=== PATIENT | male | born 1945 | race Caucasian/White ===

== ENCOUNTER 2018-02-15 20:08 | Inpatient (IN) | payer MEDICARE, OTHER ==
[2018-02-15] MEDS: SOD CHLORIDE 0.9% 1,000 ML IV (20:26)
[2018-02-15 20:42] LABS: WHITE BLOOD COUNT 15.5 10^3/ul (4.8-10.8)
[2018-02-15 20:42] LABS: ABNORMAL IP MESSAGE 1; HEMATOCRIT 13.2 % (42.0-52.0); MEAN CORPUSCULAR HEMOGLOBIN 33.3 pg (29.0-33.0); MEAN CORPUSCULAR HGB CONC 30.3 g/dl (32.0-37.0); PLATELET COUNT 206 10^3/UL (140-415); POSITIVE DIFF @See below; RED CELL DISTRIBUTION WIDTH 19.3 % (11.5-14.5)
[2018-02-15 21:01] LABS: ADD MAN DIFF? YES
[2018-02-15 21:02] LABS: ALANINE AMINOTRANSFERASE 13 IU/L (13-69); ALBUMIN 3.2 g/dl (3.3-4.9); ALKALINE PHOSPHATASE 116 IU/L (42-121); ANION GAP 27 (8-16); ASPARTATE AMINO TRANSFERASE < 8 IU/L (15-46); CALCIUM 9.3 mg/dl (8.4-10.2); CHLORIDE 124 mmol/L (97-110); CREATININE 8.82 mg/dl (0.61-1.24); GLUCOSE 158 mg/dl (70-220); SODIUM 150 mmol/L (135-144); TOTAL PROTEIN 6.4 g/dl (6.1-8.1)
[2018-02-15 21:09] LABS: POTASSIUM 7.8 mmol/L (3.5-5.1)
[2018-02-15 21:10] LABS: BLOOD UREA NITROGEN 186 mg/dl (7-20); CARBON DIOXIDE 7 mmol/L (21-31)
[2018-02-15 21:13] LABS: TROPONIN-I 0.019 ng/ml (0.000-0.120)
[2018-02-15] MEDS ORDERED: DEXTROSE 50% 50 ML SYRINGE IV (21:30)
[2018-02-15 21:43] LABS: BAND NEUTROPHILS #M 0.1 10^3/ul (0.0-0.6); BAND NEUTROPHILS % (M) 1 % (0-4); ERYTHROBLAST% (NRBC) (M) 1 % (0-0); LYMPHOCYTES # 0.9 10^3/ul (0.8-2.9); LYMPHOCYTES #M 0.9 10^3/ul (0.8-2.9); LYMPHOCYTES % (M) 6 % (15-51); MONOCYTE # 0.9 10^3/ul (0.3-0.9); MONOCYTE #M 0.9 10^3/ul (0.3-0.9); MONOCYTES % (M) 6 % (0-11); MYELOCYTES #M 0.1 10^3/ul (0.0-0.0); MYELOCYTES % (M) 1 % (0-0); SEG NEUT #M 13.3 10^3/ul (1.7-7.5); SEGMENTED NEUTROPHILS (M) % 86 % (39-77)
[2018-02-15 21:45] LABS: BURR CELLS 2+
[2018-02-15] MEDS: DEXTROSE 50% 50 ML SYRINGE IV ×2 (21:51→22:10)
[2018-02-15] MEDS: NA BICARBONATE 8.4% 50 ML SYG IV (21:54)
[2018-02-15] MEDS: INSULIN REGULAR, HUMAN 100 UNIT/1 ML 3ML VIAL IVP (21:54)
[2018-02-15] MEDS: CA CHLORIDE 10% 10 ML SYRINGE IV (21:54)
[2018-02-15 21:56] LABS: IRON 75 ug/dl (35-150)
[2018-02-15 22:06] LABS: % IRON SATURATION 31 % SAT (22-52); TOTAL IRON BINDING CAPACITY 243 ug/dl (241-421)
[2018-02-15] MEDS: NA POLYST SULFON 15 GM/60 ML BTL PO (22:10)
[2018-02-15] MEDS ORDERED: ALBUTEROL/IPRATROPIUM (NEB) 3 ML AMP NEB (23:00)
[2018-02-15] MEDS ORDERED: DOCUSATE SODIUM 100 MG CAP PO (23:00)
[2018-02-15] MEDS ORDERED: BISACODYL (EC) 5 MG TAB PO (23:00)
[2018-02-15] MEDS ORDERED: ONDANSETRON 4 MG INJ IV (23:00)
[2018-02-16 00:39] LABS: LACTIC ACID 3.1 mmol/L (0.5-2.0)
[2018-02-16 02:05] LABS: AADO2 Arterial 20.1 mmHg (7.0-24.0); Allen Test ACCEPTAB; Arterial Base Excess -17.3 mmol/L (-3.0-3); Arterial Blood Gas Oxygen Sat 96.9 mmHG (95.0-100.0); Arterial COHb 0.3 % (0.0-3.0); Arterial Fraction of Oxyhgb 95.8 % (93.0-99.0); Arterial HCO3 8.4 mmol/L (22.0-26.0); Arterial MetHb 0.8 % (0.0-1.5); Arterial Total Hemglobin 5.6 g/dl (12.0-18.0); Arterial pCO2 19.8 mmhg (35-45); MODE ROOM AIR; Site Left Radial
[2018-02-16 02:45] LABS: ADD MAN DIFF? NO
[2018-02-16 02:52] LABS: WHITE BLOOD COUNT 13.9 10^3/ul (4.8-10.8)
[2018-02-16 02:52] LABS: ABNORMAL IP MESSAGE 1; BASOPHILS % 0.1 % (0.0-2.0); EOSINOPHILS % 0.1 % (0.0-7.0); HEMATOCRIT 17.3 % (42.0-52.0); LYMPHOCYTES # 1.2 10^3/ul (0.8-2.9); LYMPHOCYTES % 8.4 % (15.0-51.0); MEAN CORPUSCULAR HEMOGLOBIN 32.9 pg (29.0-33.0); MEAN CORPUSCULAR HGB CONC 30.6 g/dl (32.0-37.0); MEAN CORPUSCULAR VOLUME 107.5 fl (82.0-101.0); MEAN PLATELET VOLUME 12.8 fl (7.4-10.4); MONOCYTE # 1.7 10^3/ul (0.3-0.9); MONOCYTES % 12.5 % (0.0-11.0); NEUTROPHIL # 10.5 10^3/ul (1.6-7.5); NEUTROPHILS % 75.8 % (39.0-77.0); NUCLEATED RED BLOOD CELLS # 0.5 10^3/ul (0.0-0.0); NUCLEATED RED BLOOD CELLS% 3.6 /100WBC (0.0-0.0); PLATELET COUNT 152 10^3/UL (140-415); POSITIVE DIFF @See below; RED BLOOD COUNT 1.61 10^6/ul (4.70-6.10); RED CELL DISTRIBUTION WIDTH 17.6 % (11.5-14.5)
[2018-02-16 03:20] LABS: HEMOGLOBIN 5.3 g/dl (14.0-18.0)
[2018-02-16 03:27] LABS: ALANINE AMINOTRANSFERASE 12 IU/L (13-69); ALBUMIN 3.1 g/dl (3.3-4.9); ALBUMIN/GLOBULIN RATIO 1.06; ALKALINE PHOSPHATASE 107 IU/L (42-121); ANION GAP 24 (8-16); ASPARTATE AMINO TRANSFERASE 9 IU/L (15-46); CALCIUM 9.9 mg/dl (8.4-10.2); CHLORIDE 128 mmol/L (97-110); CREATININE 8.07 mg/dl (0.61-1.24); GLUCOSE 121 mg/dl (70-220); POTASSIUM 5.8 mmol/L (3.5-5.1); SODIUM 155 mmol/L (135-144)
[2018-02-16] MEDS: SOD CHLORIDE 0.9% 500 ML IV ×2 (03:30→04:50)
[2018-02-16] MEDS ORDERED: PIPER-TAZO 3.375 GM IV (PMX) 100 ML IVPB (03:30)
[2018-02-16 03:33] LABS: CARBON DIOXIDE 9 mmol/L (21-31)
[2018-02-16 03:37] LABS: IMMEDIATE SPIN CROSSMATCH 1 6
[2018-02-16 03:50] LABS: BLOOD UREA NITROGEN 169 mg/dl (7-20)
[2018-02-16 04:42] LABS: FOLATE > 20.0 ng/ml (2.8-20.0)
[2018-02-16] MEDS: SODIUM BICARBONATE (IV ADD) 150 MEQ in DEXTROSE 5% 850 ML IV ×2 (04:53→23:44)
[2018-02-16] MEDS: SOD CHLORIDE 0.9% 1,000 ML IV ×2 (04:54→23:30)
[2018-02-16] MEDS: AZTREONAM 2 GM in SOD CHLORIDE 0.9% 100 ML IVPB (04:54)
[2018-02-16 05:22] LABS: LACTIC ACID 1.6 mmol/L (0.5-2.0)
[2018-02-16] MEDS: PANTOPRAZOLE (EC) 40 MG TAB PO (05:22)
[2018-02-16] MEDS: hydrALAzine 20 MG INJ IV ×2 (05:24→16:20)
[2018-02-16 05:35] LABS: ALANINE AMINOTRANSFERASE 15 IU/L (13-69); ALBUMIN 2.6 g/dl (3.3-4.9); ALBUMIN/GLOBULIN RATIO 0.96; ALKALINE PHOSPHATASE 87 IU/L (42-121); ANION GAP 20 (8-16); ASPARTATE AMINO TRANSFERASE < 8 IU/L (15-46); CALCIUM 9.1 mg/dl (8.4-10.2); CARBON DIOXIDE 12 mmol/L (21-31); CHLORIDE 129 mmol/L (97-110); CREATININE 7.57 mg/dl (0.61-1.24); GLUCOSE 134 mg/dl (70-220); POTASSIUM 5.6 mmol/L (3.5-5.1); SODIUM 155 mmol/L (135-144); TOTAL PROTEIN 5.3 g/dl (6.1-8.1)
[2018-02-16 05:43] LABS: BLOOD UREA NITROGEN 168 mg/dl (7-20)
[2018-02-16 05:59] LABS: OSMOLALITY 372 mOsm/kg (280-295)
[2018-02-16 07:23] LABS: ALANINE AMINOTRANSFERASE 16 IU/L (13-69); ALBUMIN 2.7 g/dl (3.3-4.9); ALKALINE PHOSPHATASE 91 IU/L (42-121); ANION GAP 21 (8-16); ASPARTATE AMINO TRANSFERASE 11 IU/L (15-46); CALCIUM 8.8 mg/dl (8.4-10.2); CHLORIDE 127 mmol/L (97-110); CREATININE 6.92 mg/dl (0.61-1.24); GLUCOSE 129 mg/dl (70-220); POTASSIUM 5.4 mmol/L (3.5-5.1); SODIUM 153 mmol/L (135-144); TOTAL PROTEIN 5.7 g/dl (6.1-8.1)
[2018-02-16 07:38] LABS: BLOOD UREA NITROGEN 161 mg/dl (7-20)
[2018-02-16 07:39] LABS: CARBON DIOXIDE 10 mmol/L (21-31)
[2018-02-16 09:25] LABS: HEMATOCRIT 29.4 % (42.0-52.0); HEMOGLOBIN 9.4 g/dl (14.0-18.0)
[2018-02-16 09:49] LABS: ALBUMIN/GLOBULIN RATIO 0.93
[2018-02-16 09:58] LABS: ALANINE AMINOTRANSFERASE 19 IU/L (13-69); ALBUMIN 2.7 g/dl (3.3-4.9); ALKALINE PHOSPHATASE 88 IU/L (42-121); ANION GAP 21 (8-16); ASPARTATE AMINO TRANSFERASE 16 IU/L (15-46); BILIRUBIN,INDIRECT 0.1 mg/dl (0-1.1); BILIRUBIN,TOTAL 0.1 mg/dl (0.2-1.3); CALCIUM 8.7 mg/dl (8.4-10.2); CHLORIDE 127 mmol/L (97-110); GLUCOSE 129 mg/dl (70-220); POTASSIUM 5.6 mmol/L (3.5-5.1); SODIUM 152 mmol/L (135-144); TOTAL PROTEIN 5.6 g/dl (6.1-8.1)
[2018-02-16 10:02] LABS: CARBON DIOXIDE 10 mmol/L (21-31)
[2018-02-16 10:12] LABS: BLOOD UREA NITROGEN 162 mg/dl (7-20)
[2018-02-16] MEDS: AZTREONAM 0.5 GM in SOD CHLORIDE 0.9% 50 ML IV ×2 (13:15→21:22)
[2018-02-16 14:47] LABS: RETICULOCYTE COUNT % 4.9 % (0.5-1.5)
[2018-02-16 14:47] LABS: RETICULOCYTE RBC 3.04
[2018-02-16 15:00] LABS: IRON 92 ug/dl (35-150)
[2018-02-16 15:02] LABS: ANION GAP 21 (8-16); CALCIUM 8.2 mg/dl (8.4-10.2); CHLORIDE 122 mmol/L (97-110); CREATININE 6.61 mg/dl (0.61-1.24); GLUCOSE 117 mg/dl (70-220); POTASSIUM 4.8 mmol/L (3.5-5.1); SODIUM 148 mmol/L (135-144)
[2018-02-16 15:09] LABS: % IRON SATURATION 40 % SAT (22-52); TOTAL IRON BINDING CAPACITY 230 ug/dl (241-421)
[2018-02-16 15:15] LABS: BLOOD UREA NITROGEN 149 mg/dl (7-20); CARBON DIOXIDE 10 mmol/L (21-31)
[2018-02-16] MEDS: LACTULOSE 30ML CUP PO ×4 (15:18→23:44)
[2018-02-16] MEDS: ACETAMINOPHEN 650MG/20.3ML CUP PO (15:28)
[2018-02-16 16:08] LABS: ADD MAN DIFF? NO
[2018-02-16 16:11] LABS: ABNORMAL IP MESSAGE 1; BASOPHIL # 0.1 10^3/ul (0.0-0.1); BASOPHILS % 0.4 % (0.0-2.0); EOSINOPHILS # 0.2 10^3/ul (0.0-0.5); EOSINOPHILS % 1.6 % (0.0-7.0); HEMATOCRIT 27.9 % (42.0-52.0); LYMPHOCYTES # 0.5 10^3/ul (0.8-2.9); LYMPHOCYTES % 3.9 % (15.0-51.0); MEAN CORPUSCULAR HGB CONC 32.3 g/dl (32.0-37.0); MEAN CORPUSCULAR VOLUME 96.2 fl (82.0-101.0); MEAN PLATELET VOLUME 13.2 fl (7.4-10.4); MONOCYTE # 1.3 10^3/ul (0.3-0.9); MONOCYTES % 9.5 % (0.0-11.0); NEUTROPHIL # 11.3 10^3/ul (1.6-7.5); NEUTROPHILS % 81.6 % (39.0-77.0); NUCLEATED RED BLOOD CELLS # 0.8 10^3/ul (0.0-0.0); NUCLEATED RED BLOOD CELLS% 6.1 /100WBC (0.0-0.0); PLATELET COUNT 90 10^3/UL (140-415); POSITIVE DIFF @See below; RED CELL DISTRIBUTION WIDTH 20.7 % (11.5-14.5)
[2018-02-16 16:11] LABS: WHITE BLOOD COUNT 13.9 10^3/ul (4.8-10.8)
[2018-02-16 17:02] LABS: ANISOCYTOSIS 2+ (0-0); BURR CELLS 2+ (0-0); EOSINOPHILS % (M) 1 % (0-7); ERYTHROBLAST% (NRBC) (M) 10 % (0-0); GIANT THROMBO% (M) 2 % (0-0); LYMPHOCYTES % (M) 15 % (15-51); MICROCYTOSIS 1+ (0-0); POIKILOCYTOSIS 2+ (0-0); POLYCHROMASIA 1+ (0-0); SEGMENTED NEUTROPHILS (M) % 84 % (39-77)
[2018-02-16] MEDS: EPOETIN 10000 UNITS/1 ML INJ (ESRD) SC (18:06)
[2018-02-17] MEDS: LACTULOSE 30ML CUP PO (02:58)
[2018-02-17] MEDS: SOD CHLORIDE 0.9% 1,000 ML IV (02:59)
[2018-02-17] MEDS: SODIUM BICARBONATE (IV ADD) 150 MEQ in DEXTROSE 5% 850 ML IV (02:59)
[2018-02-17] MEDS: PANTOPRAZOLE (EC) 40 MG TAB PO (06:00)
[2018-02-17 07:20] LABS: ADD MAN DIFF? NO
[2018-02-17 07:26] LABS: ABNORMAL IP MESSAGE 1; BASOPHIL # 0.1 10^3/ul (0.0-0.1); BASOPHILS % 0.5 % (0.0-2.0); EOSINOPHILS # 0.4 10^3/ul (0.0-0.5); EOSINOPHILS % 3.1 % (0.0-7.0); HEMOGLOBIN 8.9 g/dl (14.0-18.0); LYMPHOCYTES # 0.8 10^3/ul (0.8-2.9); MEAN CORPUSCULAR HEMOGLOBIN 30.9 pg (29.0-33.0); MEAN CORPUSCULAR VOLUME 93.8 fl (82.0-101.0); MEAN PLATELET VOLUME 12.7 fl (7.4-10.4); MONOCYTE # 1.3 10^3/ul (0.3-0.9); MONOCYTES % 10.3 % (0.0-11.0); NEUTROPHIL # 9.6 10^3/ul (1.6-7.5); NEUTROPHILS % 77.4 % (39.0-77.0); NUCLEATED RED BLOOD CELLS # 1.1 10^3/ul (0.0-0.0); NUCLEATED RED BLOOD CELLS% 8.6 /100WBC (0.0-0.0); PLATELET COUNT 84 10^3/UL (140-415); POSITIVE DIFF @See below; RED BLOOD COUNT 2.88 10^6/ul (4.70-6.10); RED CELL DISTRIBUTION WIDTH 21.2 % (11.5-14.5)
[2018-02-17 07:26] LABS: WHITE BLOOD COUNT 12.4 10^3/ul (4.8-10.8)
[2018-02-17] MEDS: hydrALAzine 20 MG INJ IV (07:35)
[2018-02-17 07:58] LABS: ANION GAP 17 (8-16); CARBON DIOXIDE 14 mmol/L (21-31); CHLORIDE 126 mmol/L (97-110); CREATININE 6.25 mg/dl (0.61-1.24); GLUCOSE 94 mg/dl (70-220); MAGNESIUM 1.6 mg/dl (1.7-2.5); PHOSPHORUS 5.3 mg/dl (2.5-4.9); SODIUM 153 mmol/L (135-144)
[2018-02-17 08:06] LABS: BLOOD UREA NITROGEN 127 mg/dl (7-20)
[2018-02-17] MEDS: AZTREONAM 0.5 GM in SOD CHLORIDE 0.9% 50 ML IV ×2 (09:21→20:41)
[2018-02-17] MEDS: MAGNESIUM SULFATE 1 GM/D5W 100 ML IVPB (09:21)
[2018-02-17] MEDS: SODIUM BICARBONATE (IV ADD) 75 MEQ in DEXTROSE 5% 1,000 ML IV (12:26)
[2018-02-17 12:37] LABS: PLATELET COUNT 85 10^3/UL (140-415)
[2018-02-17 12:56] LABS: PROTIME 15.4 Sec (11.9-14.9); PT RATIO 1.2; THROMBIN TIME 16.6 SEC (13.8-19.1)
[2018-02-17 12:57] LABS: PARTIAL THROMBOPLASTIN TIME 34.8 Sec (25.0-35.0)
[2018-02-17] MEDS: FENTAnyl 50 MCG/ML VIAL (17:18)
[2018-02-17] MEDS: PROPOFOL 20 ML (17:18)
[2018-02-17] MEDS: MIDAZOLAM 1 MG/ML 2 ML INJ (17:18)
[2018-02-17] MEDS: ACETAMINOPHEN 650MG/20.3ML CUP PO (20:41)
[2018-02-17 21:21] LABS: ADD UMIC YES; UR ASCORBIC ACID NEGATIVE (NEGATIVE); UR BILIRUBIN (Dip) NEGATIVE (NEGATIVE); UR BLOOD (Dip) NEGATIVE (NEGATIVE); UR CLARITY CLEAR (CLEAR); UR COLOR YELLOW (YELLOW); UR GLUCOSE (Dip) NEGATIVE (NEGATIVE); UR KETONES (Dip) NEGATIVE (NEGATIVE); UR LEUKOCYTE ESTERASE (Dip) NEGATIVE Leu/ul (NEGATIVE); UR NITRITE (Dip) NEGATIVE (NEGATIVE); UR RBC 4 /HPF (0-5); UR SPECIFIC GRAVITY (Dip) 1.012 (1.003-1.030); UR TOTAL PROTEIN (Dip) 2+ mg/dl (NEGATIVE); UR UROBILINOGEN (Dip) NEGATIVE (NEGATIVE); UR WBC 1 /HPF (0-5)
[2018-02-17 21:32] LABS: SODIUM,URINE RANDOM 86 mmol/L (30-90)
[2018-02-17 21:32] LABS: CREATININE,URINE RANDOM 69.49 mg/dl (20-370)
[2018-02-17 21:50] LABS: OSMOLALITY,URINE 424 mOsm/kg (250-1200)
[2018-02-18] MEDS: LIDOCAINE 1% (MPF) 5 ML VIAL SC (04:30)
[2018-02-18] MEDS: PANTOPRAZOLE (EC) 40 MG TAB PO (06:07)
[2018-02-18 06:46] LABS: ADD MAN DIFF? NO
[2018-02-18 06:52] LABS: ABNORMAL IP MESSAGE 1; BASOPHIL # 0.1 10^3/ul (0.0-0.1); BASOPHILS % 0.4 % (0.0-2.0); EOSINOPHILS # 0.3 10^3/ul (0.0-0.5); EOSINOPHILS % 2.1 % (0.0-7.0); HEMATOCRIT 25.8 % (42.0-52.0); HEMOGLOBIN 8.5 g/dl (14.0-18.0); LYMPHOCYTES # 0.5 10^3/ul (0.8-2.9); LYMPHOCYTES % 3.8 % (15.0-51.0); MEAN CORPUSCULAR HEMOGLOBIN 30.9 pg (29.0-33.0); MEAN CORPUSCULAR HGB CONC 32.9 g/dl (32.0-37.0); MEAN CORPUSCULAR VOLUME 93.8 fl (82.0-101.0); MEAN PLATELET VOLUME 13.5 fl (7.4-10.4); MONOCYTE # 1.2 10^3/ul (0.3-0.9); MONOCYTES % 8.6 % (0.0-11.0); NEUTROPHIL # 11.2 10^3/ul (1.6-7.5); NUCLEATED RED BLOOD CELLS% 7.1 /100WBC (0.0-0.0); PLATELET COUNT 88 10^3/UL (140-415); POSITIVE DIFF @See below; RED BLOOD COUNT 2.75 10^6/ul (4.70-6.10); RED CELL DISTRIBUTION WIDTH 21.9 % (11.5-14.5)
[2018-02-18 06:52] LABS: WHITE BLOOD COUNT 13.5 10^3/ul (4.8-10.8)
[2018-02-18] MEDS: SODIUM BICARBONATE (IV ADD) 75 MEQ in DEXTROSE 5% 1,000 ML IV (07:00)
[2018-02-18 07:14] LABS: ANION GAP 13 (8-16); BLOOD UREA NITROGEN 109 mg/dl (7-20); CALCIUM 7.8 mg/dl (8.4-10.2); CARBON DIOXIDE 15 mmol/L (21-31); CHLORIDE 121 mmol/L (97-110); CREATININE 5.67 mg/dl (0.61-1.24); GLUCOSE 145 mg/dl (70-220); MAGNESIUM 1.7 mg/dl (1.7-2.5); PHOSPHORUS 4.9 mg/dl (2.5-4.9); POTASSIUM 3.8 mmol/L (3.5-5.1); SODIUM 145 mmol/L (135-144)
[2018-02-18] MEDS: AZTREONAM 0.5 GM in SOD CHLORIDE 0.9% 50 ML IV (13:12)
[2018-02-18] MEDS: SOD CHLORIDE 0.45% 1,000 ML IV (16:11)
[2018-02-18] MEDS: EPOETIN 10000 UNITS/1 ML INJ (ESRD) SC (17:01)
[2018-02-18] MEDS: hydrALAzine 20 MG INJ IV (20:02)
[2018-02-19 05:41] LABS: ADD MAN DIFF? NO
[2018-02-19] MEDS: PANTOPRAZOLE (EC) 40 MG TAB PO (05:44)
[2018-02-19 05:47] LABS: WHITE BLOOD COUNT 12.6 10^3/ul (4.8-10.8)
[2018-02-19 05:47] LABS: ABNORMAL IP MESSAGE 1; BASOPHIL # 0.1 10^3/ul (0.0-0.1); BASOPHILS % 0.4 % (0.0-2.0); EOSINOPHILS # 0.5 10^3/ul (0.0-0.5); EOSINOPHILS % 4.3 % (0.0-7.0); HEMATOCRIT 26.2 % (42.0-52.0); HEMOGLOBIN 8.5 g/dl (14.0-18.0); LYMPHOCYTES # 0.7 10^3/ul (0.8-2.9); LYMPHOCYTES % 5.6 % (15.0-51.0); MEAN CORPUSCULAR HEMOGLOBIN 30.6 pg (29.0-33.0); MEAN CORPUSCULAR HGB CONC 32.4 g/dl (32.0-37.0); MEAN CORPUSCULAR VOLUME 94.2 fl (82.0-101.0); MEAN PLATELET VOLUME 13.1 fl (7.4-10.4); MONOCYTES % 8.2 % (0.0-11.0); NEUTROPHILS % 79.5 % (39.0-77.0); NUCLEATED RED BLOOD CELLS # 0.7 10^3/ul (0.0-0.0); NUCLEATED RED BLOOD CELLS% 5.2 /100WBC (0.0-0.0); PLATELET COUNT 83 10^3/UL (140-415); POSITIVE DIFF @See below; RED BLOOD COUNT 2.78 10^6/ul (4.70-6.10); RED CELL DISTRIBUTION WIDTH 21.9 % (11.5-14.5)
[2018-02-19 06:22] LABS: ANION GAP 14 (8-16); BLOOD UREA NITROGEN 99 mg/dl (7-20); CALCIUM 7.8 mg/dl (8.4-10.2); CARBON DIOXIDE 15 mmol/L (21-31); CHLORIDE 119 mmol/L (97-110); CREATININE 5.28 mg/dl (0.61-1.24); GLUCOSE 94 mg/dl (70-220); MAGNESIUM 1.5 mg/dl (1.7-2.5); PHOSPHORUS 4.5 mg/dl (2.5-4.9); POTASSIUM 4.3 mmol/L (3.5-5.1); SODIUM 144 mmol/L (135-144)
[2018-02-19] MEDS: SOD CHLORIDE 0.45% 1,000 ML IV (12:04)
[2018-02-19] MEDS: MAGNESIUM OXIDE 400 MG TAB PO (14:00)
[2018-02-21 17:16] LABS: CREATININE, RANDOM URINE 83 mg/dL (20-370); MICROALBUMIN 72.7 mg/dL; MICROALBUMIN/CREATININE RATIO 876 (<30)
== END 2018-02-19 16:30 | disposition home health service (06) | DRG 682 ==
LOC: ICU 23:08 → MS1 02-18 21:50 → E/R 20:08 → ICU 02-16 00:50 → TEL 02-16 13:40
PROC: 0DBK8ZX Excision of Ascending Colon, Via Natural or Artificial Opening Endoscopic, Diagnostic (ICD-10-PCS; principal; 2018-02-17 16:55)
PROC: 0W3P8ZZ Control Bleeding in Gastrointestinal Tract, Via Natural or Artificial Opening Endoscopic (ICD-10-PCS; 2018-02-17 16:55)
PROC: 0DB68ZX Excision of Stomach, Via Natural or Artificial Opening Endoscopic, Diagnostic (ICD-10-PCS; 2018-02-17 16:55)
PROC: 30233N1 Transfusion of Nonautologous Red Blood Cells into Peripheral Vein, Percutaneous Approach (ICD-10-PCS; 2018-02-17 16:55)
DX: N17.9 Acute kidney failure, unspecified (principal); E43 Unspecified severe protein-calorie malnutrition; K25.4 Chronic or unspecified gastric ulcer with hemorrhage; K55.21 Angiodysplasia of colon with hemorrhage; I12.0 Hypertensive chronic kidney disease with stage 5 chronic kidney disease or end stage renal disease; E87.0 Hyperosmolality and hypernatremia; E87.2 Acidosis; Z68.1 Body mass index [BMI] 19.9 or less, adult; R65.10 Systemic inflammatory response syndrome (SIRS) of non-infectious origin without acute organ dysfunction; E11.22 Type 2 diabetes mellitus with diabetic chronic kidney disease; N18.6 End stage renal disease; D63.1 Anemia in chronic kidney disease; F17.200 Nicotine dependence, unspecified, uncomplicated; E87.5 Hyperkalemia; Z66 Do not resuscitate; E83.42 Hypomagnesemia; D69.6 Thrombocytopenia, unspecified
CPT/HCPCS: 36415; 36430; 36600; 71045; 76775; 80048; 80053; 81001; 81003; 82043; 82306; 82607; 82652; 82746; 82803; 82962; 83540; 83605; 83735; 83930; 83935; 84100; 84155; 84300; 84443; 84484; 85014; 85018; 85025; 85045; 85049; 85610; 85670; 85730; 86850; 86900; 86901; 86920; 87040; 87081; 88305; 88313; 93005; 96374; 96375; 99291-25

== ENCOUNTER 2018-04-09 17:12 | Inpatient (IN) | payer MEDICARE, OTHER ==
[2018-04-09] MEDS: SOD CHLORIDE 0.9% 250 ML IV (10:00)
[2018-04-09] MEDS: SOD CHLORIDE 0.45% 1,000 ML IV (14:00)
[2018-04-09] MEDS: SOD CHLORIDE 0.9% 1,000 ML IV (18:51)
[2018-04-09] MEDS: PANTOPRAZOLE 40 MG INJ IV ×2 (18:52→21:00)
[2018-04-09 18:53] LABS: ABNORMAL IP MESSAGE 1; HEMATOCRIT 13.2 % (42.0-52.0); MEAN CORPUSCULAR HEMOGLOBIN 33.1 pg (29.0-33.0); MEAN CORPUSCULAR HGB CONC 29.5 g/dl (32.0-37.0); MEAN CORPUSCULAR VOLUME 111.9 fl (82.0-101.0); MEAN PLATELET VOLUME 12.8 fl (7.4-10.4); PLATELET COUNT 89 10^3/UL (140-415); POSITIVE DIFF @See below; RED BLOOD COUNT 1.18 10^6/ul (4.70-6.10); RED CELL DISTRIBUTION WIDTH 16.9 % (11.5-14.5)
[2018-04-09 19:03] LABS: HEMOGLOBIN 3.9 g/dl (14.0-18.0)
[2018-04-09 19:04] LABS: ADD MAN DIFF? YES
[2018-04-09 19:07] LABS: PROTIME 15.4 Sec (11.9-14.9); PT RATIO 1.2
[2018-04-09 19:08] LABS: PARTIAL THROMBOPLASTIN TIME 32.2 Sec (25.0-35.0)
[2018-04-09 19:09] LABS: ALANINE AMINOTRANSFERASE 18 IU/L (13-69); ALBUMIN 2.8 g/dl (3.3-4.9); ALBUMIN/GLOBULIN RATIO 0.96; ALKALINE PHOSPHATASE 76 IU/L (42-121); ANION GAP 14 (8-16); ASPARTATE AMINO TRANSFERASE 11 IU/L (15-46); BLOOD UREA NITROGEN 107 mg/dl (7-20); CALCIUM 8.1 mg/dl (8.4-10.2); CARBON DIOXIDE 11 mmol/L (21-31); CHLORIDE 123 mmol/L (97-110); CREATININE 6.03 mg/dl (0.61-1.24); GLUCOSE 97 mg/dl (70-220); SODIUM 141 mmol/L (135-144); TOTAL PROTEIN 5.7 g/dl (6.1-8.1)
[2018-04-09 19:20] LABS: TROPONIN-I 0.023 ng/ml (0.000-0.120)
[2018-04-09 19:29] LABS: POTASSIUM 6.7 mmol/L (3.5-5.1)
[2018-04-09] MEDS ORDERED: ONDANSETRON 4 MG INJ IV (19:30)
[2018-04-09] MEDS ORDERED: ACETAMINOPHEN 325 MG TAB PO (19:30)
[2018-04-09 19:40] LABS: BASOPHIL # 0.2 10^3/ul (0.0-0.1); LYMPHOCYTES # 1.7 10^3/ul (0.8-2.9); LYMPHOCYTES #M 1.6 10^3/ul (0.8-2.9); LYMPHOCYTES % (M) 28 % (15-51); MONOCYTE # 0.5 10^3/ul (0.3-0.9); MONOCYTE #M 0.4 10^3/ul (0.3-0.9); MONOCYTES % (M) 8 % (0-11); REACTIVE LYMPHOCYTES% (M) 1 % (0-0); SEGMENTED NEUTROPHILS (M) % 60 % (39-77)
[2018-04-09 19:42] LABS: ANISOCYTOSIS 1+ (0-0)
[2018-04-09 19:43] LABS: BURR CELLS 1+; HYPOCHROMASIA 2+ (0-0)
[2018-04-09] MEDS ORDERED: ALBUTEROL/IPRATROPIUM (NEB) 3 ML AMP HHN (20:00)
[2018-04-09] MEDS ORDERED: LORAZEPAM 2 MG INJ IV (20:00)
[2018-04-09] MEDS ORDERED: MAGNESIUM HYDROXIDE 30ML CUP PO (20:00)
[2018-04-09] MEDS ORDERED: NITROGLYCERIN (SL) 0.4 MG TAB SL (20:00)
[2018-04-09] MEDS ORDERED: DOCUSATE SODIUM 100 MG CAP PO (20:00)
[2018-04-09] MEDS ORDERED: NA PHOSPHATE/BIPHOS 133 ML ENEMA PR (20:00)
[2018-04-09] MEDS ORDERED: NACL 0.9% 3 ML SYG IV (20:00)
[2018-04-09] MEDS ORDERED: HYDROCODONE/APAP (5/325) TAB PO (20:00)
[2018-04-09 20:23] LABS: FREE T4 (FREE THYROXINE) 0.81 ng/dl (0.78-2.44)
[2018-04-09] MEDS: NA POLYST SULFON 15 GM/60 ML BTL PO (20:37)
[2018-04-09] MEDS ORDERED: ALBUTEROL 0.5% (NEB) 2.5 MG/0.5 ML AMP INH (20:37)
[2018-04-09] MEDS: DEXTROSE 50% 50 ML SYRINGE IV (22:27)
[2018-04-09] MEDS: INSULIN REGULAR, HUMAN 100 UNIT/1 ML 3ML VIAL IVP (22:29)
[2018-04-09] MEDS: NA BICARBONATE 8.4% 50 ML SYG IV (22:34)
[2018-04-09 23:37] LABS: IMMEDIATE SPIN CROSSMATCH 1 6
[2018-04-10] MEDS: hydrALAzine 20 MG INJ IV ×2 (01:37→20:03)
[2018-04-10] MEDS: NA POLYST SULFON 15 GM/60 ML BTL PO (01:38)
[2018-04-10] MEDS ORDERED: SODIUM BICARBONATE (IV ADD) 100 MEQ in SOD CHLORIDE 0.45% 1,000 ML IV (02:00)
[2018-04-10] MEDS: SODIUM BICARBONATE (IV ADD) 100 MEQ in SOD CHLORIDE 0.45% 1,000 ML IV ×2 (02:00→14:06)
[2018-04-10] MEDS: CALCIUM GLUCONATE 10% 2 GM in DEXTROSE 5% 100 ML IVPB (02:30)
[2018-04-10] MEDS: PANTOPRAZOLE 40 MG INJ IV ×2 (06:05→17:49)
[2018-04-10] MEDS: FOLIC ACID 1 MG TAB PO (08:02)
[2018-04-10] MEDS: ERGOCALCIFEROL 50,000 UNIT CAP PO (08:02)
[2018-04-10] MEDS: MULTIVITAMINS THERAPEUTIC TAB PO (08:03)
[2018-04-10] MEDS: THIAMINE 100 MG TAB PO (08:03)
[2018-04-10 08:05] LABS: ADD MAN DIFF? NO
[2018-04-10 08:15] LABS: ABNORMAL IP MESSAGE 1; BASOPHIL # 0.1 10^3/ul (0.0-0.1); BASOPHILS % 1.4 % (0.0-2.0); EOSINOPHILS # 0.2 10^3/ul (0.0-0.5); HEMATOCRIT 25.6 % (42.0-52.0); HEMOGLOBIN 8.2 g/dl (14.0-18.0); LYMPHOCYTES # 1.6 10^3/ul (0.8-2.9); LYMPHOCYTES % 20.3 % (15.0-51.0); MEAN CORPUSCULAR HEMOGLOBIN 30.7 pg (29.0-33.0); MEAN CORPUSCULAR VOLUME 95.9 fl (82.0-101.0); MEAN PLATELET VOLUME 12.2 fl (7.4-10.4); MONOCYTE # 1.3 10^3/ul (0.3-0.9); MONOCYTES % 15.7 % (0.0-11.0); NEUTROPHIL # 4.7 10^3/ul (1.6-7.5); NUCLEATED RED BLOOD CELLS% 0.4 /100WBC (0.0-0.0); PLATELET COUNT 75 10^3/UL (140-415); POSITIVE DIFF @See below; RED BLOOD COUNT 2.67 10^6/ul (4.70-6.10); RED CELL DISTRIBUTION WIDTH 18.3 % (11.5-14.5)
[2018-04-10 08:28] LABS: CHOLESTEROL 128 mg/dl (100-200)
[2018-04-10 08:28] LABS: HDL CHOLESTEROL 16 mg/dl (31-75); LDL CHOLESTEROL,CALCULATED 77 mg/dl; TRIGLYCERIDES 175 mg/dl (0-149)
[2018-04-10 08:30] LABS: ANION GAP 11 (8-16); BLOOD UREA NITROGEN 107 mg/dl (7-20); CARBON DIOXIDE 14 mmol/L (21-31); CHLORIDE 128 mmol/L (97-110); CREATININE 5.26 mg/dl (0.61-1.24); GLUCOSE 89 mg/dl (70-220); MAGNESIUM 1.7 mg/dl (1.7-2.5); SODIUM 147 mmol/L (135-144)
[2018-04-10 08:41] LABS: POTASSIUM 5.5 mmol/L (3.5-5.1)
[2018-04-10] MEDS: NA BICARBONATE 8.4% 50 ML SYG IV (09:01)
[2018-04-10 09:17] LABS: HEMOGLOBIN A1C 4.8 % (0-5.9)
[2018-04-10 10:55] LABS: POTASSIUM 5.5 mmol/L (3.5-5.1)
[2018-04-10] MEDS ORDERED: hydrALAzine 20 MG INJ IV (11:30)
[2018-04-10] MEDS ORDERED: LIDOCAINE 2% (SDV) 5 ML INJ (12:56)
[2018-04-10] MEDS ORDERED: ETOMIDATE 20 MG INJ (12:56)
[2018-04-10] MEDS ORDERED: ONDANSETRON 4 MG INJ IV (13:30)
[2018-04-10] MEDS ORDERED: HYDROmorphONE 1 MG/5 ML IV SYRINGE IV (13:30)
[2018-04-10] MEDS ORDERED: PEG/ELECTROLYTES 4L BTL PO (13:30)
[2018-04-10] MEDS: hydrALAzine 20 MG INJ ×2 (14:00)
[2018-04-10 15:54] LABS: ANION GAP 15 (8-16); BLOOD UREA NITROGEN 101 mg/dl (7-20); CALCIUM 7.7 mg/dl (8.4-10.2); CARBON DIOXIDE 14 mmol/L (21-31); CHLORIDE 123 mmol/L (97-110); GLUCOSE 118 mg/dl (70-220); POTASSIUM 4.5 mmol/L (3.5-5.1); SODIUM 147 mmol/L (135-144)
[2018-04-10] MEDS: EPOETIN 10000 UNITS/1 ML INJ (ESRD) SC (20:03)
[2018-04-10 20:49] LABS: ADD UMIC YES; UR ASCORBIC ACID NEGATIVE (NEGATIVE); UR BILIRUBIN (Dip) NEGATIVE (NEGATIVE); UR BLOOD (Dip) NEGATIVE (NEGATIVE); UR CLARITY CLEAR (CLEAR); UR COLOR STRAW (YELLOW); UR GLUCOSE (Dip) 1+ mg/dL (NEGATIVE); UR KETONES (Dip) NEGATIVE (NEGATIVE); UR LEUKOCYTE ESTERASE (Dip) NEGATIVE Leu/ul (NEGATIVE); UR NITRITE (Dip) NEGATIVE (NEGATIVE); UR RBC 1 /HPF (0-5); UR SPECIFIC GRAVITY (Dip) 1.013 (1.003-1.030); UR TOTAL PROTEIN (Dip) 2+ mg/dl (NEGATIVE); UR UROBILINOGEN (Dip) NEGATIVE (NEGATIVE); UR WBC 0 /HPF (0-5)
[2018-04-10 20:53] LABS: SODIUM,URINE RANDOM 87 mmol/L (30-90)
[2018-04-10 20:53] LABS: CREATININE,URINE RANDOM 60.87 mg/dl (20-370)
[2018-04-11] MEDS: PANTOPRAZOLE 40 MG INJ IV ×2 (05:34→18:17)
[2018-04-11 06:44] LABS: ADD MAN DIFF? NO
[2018-04-11 06:52] LABS: ABNORMAL IP MESSAGE 1; BASOPHIL # 0.1 10^3/ul (0.0-0.1); BASOPHILS % 0.6 % (0.0-2.0); EOSINOPHILS # 0.1 10^3/ul (0.0-0.5); EOSINOPHILS % 0.3 % (0.0-7.0); HEMATOCRIT 28.2 % (42.0-52.0); HEMOGLOBIN 8.9 g/dl (14.0-18.0); LYMPHOCYTES # 1.1 10^3/ul (0.8-2.9); MEAN CORPUSCULAR HEMOGLOBIN 29.3 pg (29.0-33.0); MEAN CORPUSCULAR HGB CONC 31.6 g/dl (32.0-37.0); MEAN CORPUSCULAR VOLUME 92.8 fl (82.0-101.0); MONOCYTE # 1.5 10^3/ul (0.3-0.9); MONOCYTES % 9.8 % (0.0-11.0); NEUTROPHIL # 12.6 10^3/ul (1.6-7.5); NEUTROPHILS % 81.4 % (39.0-77.0); NUCLEATED RED BLOOD CELLS # 0.1 10^3/ul (0.0-0.0); NUCLEATED RED BLOOD CELLS% 0.3 /100WBC (0.0-0.0); POSITIVE DIFF @See below; RED BLOOD COUNT 3.04 10^6/ul (4.70-6.10); RED CELL DISTRIBUTION WIDTH 20.4 % (11.5-14.5)
[2018-04-11 06:52] LABS: WHITE BLOOD COUNT 15.5 10^3/ul (4.8-10.8)
[2018-04-11 06:56] LABS: PLATELET COUNT 77 10^3/UL (140-415)
[2018-04-11 07:15] LABS: ANION GAP 12 (8-16); BLOOD UREA NITROGEN 95 mg/dl (7-20); CALCIUM 7.4 mg/dl (8.4-10.2); CARBON DIOXIDE 15 mmol/L (21-31); CHLORIDE 120 mmol/L (97-110); CREATININE 4.76 mg/dl (0.61-1.24); GLUCOSE 116 mg/dl (70-220); POTASSIUM 3.8 mmol/L (3.5-5.1); SODIUM 143 mmol/L (135-144)
[2018-04-11 07:18] LABS: MAGNESIUM 1.3 mg/dl (1.7-2.5)
[2018-04-11 07:42] LABS: PHOSPHORUS 4.2 mg/dl (2.5-4.9)
[2018-04-11] MEDS: SODIUM BICARBONATE (IV ADD) 100 MEQ in SOD CHLORIDE 0.45% 1,000 ML IV ×2 (09:45→21:51)
[2018-04-11] MEDS: FOLIC ACID 1 MG TAB PO (09:47)
[2018-04-11] MEDS: MULTIVITAMINS THERAPEUTIC TAB PO (09:47)
[2018-04-11] MEDS: THIAMINE 100 MG TAB PO (09:47)
[2018-04-11] MEDS: LACTULOSE 30ML CUP PO ×3 (18:17→23:12)
[2018-04-11 19:13] LABS: HEMATOCRIT 29.5 % (42.0-52.0); HEMOGLOBIN 9.6 g/dl (14.0-18.0)
[2018-04-12] MEDS: LACTULOSE 30ML CUP PO (01:09)
[2018-04-12] MEDS: SODIUM BICARBONATE (IV ADD) 100 MEQ in SOD CHLORIDE 0.45% 1,000 ML IV (05:55)
[2018-04-12] MEDS: FOLIC ACID 1 MG TAB PO (06:39)
[2018-04-12] MEDS: THIAMINE 100 MG TAB PO (06:39)
[2018-04-12] MEDS: MULTIVITAMINS THERAPEUTIC TAB PO (06:39)
[2018-04-12] MEDS: PANTOPRAZOLE 40 MG INJ IV ×2 (06:39→18:14)
[2018-04-12 06:55] LABS: ADD MAN DIFF? NO
[2018-04-12 07:03] LABS: ABNORMAL IP MESSAGE 1; BASOPHIL # 0.1 10^3/ul (0.0-0.1); BASOPHILS % 0.5 % (0.0-2.0); EOSINOPHILS # 0.1 10^3/ul (0.0-0.5); EOSINOPHILS % 0.8 % (0.0-7.0); HEMATOCRIT 28.1 % (42.0-52.0); HEMOGLOBIN 9.1 g/dl (14.0-18.0); LYMPHOCYTES # 0.8 10^3/ul (0.8-2.9); LYMPHOCYTES % 5.8 % (15.0-51.0); MEAN CORPUSCULAR HEMOGLOBIN 30.3 pg (29.0-33.0); MEAN CORPUSCULAR HGB CONC 32.4 g/dl (32.0-37.0); MEAN CORPUSCULAR VOLUME 93.7 fl (82.0-101.0); MEAN PLATELET VOLUME 12.7 fl (7.4-10.4); MONOCYTE # 1.5 10^3/ul (0.3-0.9); NEUTROPHIL # 10.7 10^3/ul (1.6-7.5); NEUTROPHILS % 81.4 % (39.0-77.0); PLATELET COUNT 83 10^3/UL (140-415); POSITIVE DIFF @See below; RED CELL DISTRIBUTION WIDTH 20.6 % (11.5-14.5)
[2018-04-12 07:03] LABS: WHITE BLOOD COUNT 13.2 10^3/ul (4.8-10.8)
[2018-04-12 07:43] LABS: ANION GAP 10 (8-16); BLOOD UREA NITROGEN 82 mg/dl (7-20); CALCIUM 7.3 mg/dl (8.4-10.2); CARBON DIOXIDE 17 mmol/L (21-31); CHLORIDE 121 mmol/L (97-110); GLUCOSE 90 mg/dl (70-220); POTASSIUM 3.5 mmol/L (3.5-5.1); SODIUM 144 mmol/L (135-144)
[2018-04-12] MEDS: hydrALAzine 20 MG INJ IV (08:57)
[2018-04-12] MEDS: EPOETIN 10000 UNITS/1 ML INJ (ESRD) SC (10:10)
[2018-04-12] MEDS ORDERED: ONDANSETRON 4 MG INJ IV (11:30)
[2018-04-12] MEDS ORDERED: PROCHLORPERAZINE 10 MG INJ IV (11:30)
[2018-04-12] MEDS ORDERED: PROPOFOL 20 ML ×3 (11:52→12:11)
[2018-04-12] MEDS ORDERED: LIDOCAINE 2% (SDV) 5 ML INJ (11:52)
[2018-04-12] MEDS: morphine 2 MG INJ IV (14:18)
[2018-04-12] MEDS: ONDANSETRON 4 MG INJ IV (14:18)
[2018-04-12] MEDS: metroNIDAZOLE 500 MG TAB PO ×2 (14:19→21:32)
[2018-04-12] MEDS: ACETAMINOPHEN 325 MG TAB PO (18:13)
[2018-04-12] MEDS: POTASSIUM CHLORIDE 50 ML IVPB (22:53)
[2018-04-12] MEDS ORDERED: morphine LIQ (10 MG/5 ML) CUP PO (23:00)
[2018-04-13] MEDS: SODIUM BICARBONATE (IV ADD) 100 MEQ in SOD CHLORIDE 0.45% 1,000 ML IV (04:42)
[2018-04-13] MEDS: PANTOPRAZOLE 40 MG INJ IV (05:52)
[2018-04-13] MEDS: metroNIDAZOLE 500 MG TAB PO ×2 (05:52→13:20)
[2018-04-13 07:28] LABS: ADD MAN DIFF? NO
[2018-04-13 07:31] LABS: WHITE BLOOD COUNT 24.6 10^3/ul (4.8-10.8)
[2018-04-13 07:31] LABS: ABNORMAL IP MESSAGE 1; BASOPHILS % 0.2 % (0.0-2.0); HEMATOCRIT 26.7 % (42.0-52.0); HEMOGLOBIN 8.6 g/dl (14.0-18.0); LYMPHOCYTES % 3.9 % (15.0-51.0); MEAN CORPUSCULAR HEMOGLOBIN 30.1 pg (29.0-33.0); MEAN CORPUSCULAR HGB CONC 32.2 g/dl (32.0-37.0); MEAN CORPUSCULAR VOLUME 93.4 fl (82.0-101.0); MEAN PLATELET VOLUME 12.3 fl (7.4-10.4); MONOCYTE # 1.3 10^3/ul (0.3-0.9); MONOCYTES % 5.4 % (0.0-11.0); NEUTROPHIL # 22.1 10^3/ul (1.6-7.5); NEUTROPHILS % 89.7 % (39.0-77.0); NUCLEATED RED BLOOD CELLS% 0.1 /100WBC (0.0-0.0); PLATELET COUNT 90 10^3/UL (140-415); POSITIVE DIFF @See below; RED BLOOD COUNT 2.86 10^6/ul (4.70-6.10); RED CELL DISTRIBUTION WIDTH 20.8 % (11.5-14.5)
[2018-04-13 07:57] LABS: ANION GAP 13 (8-16); BLOOD UREA NITROGEN 76 mg/dl (7-20); CALCIUM 6.6 mg/dl (8.4-10.2); CARBON DIOXIDE 18 mmol/L (21-31); CHLORIDE 111 mmol/L (97-110); CREATININE 4.63 mg/dl (0.61-1.24); GLUCOSE 90 mg/dl (70-220); POTASSIUM 3.6 mmol/L (3.5-5.1); SODIUM 138 mmol/L (135-144)
[2018-04-13] MEDS: FOLIC ACID 1 MG TAB PO (08:55)
[2018-04-13] MEDS: THIAMINE 100 MG TAB PO (08:55)
[2018-04-13] MEDS: MULTIVITAMINS THERAPEUTIC TAB PO (08:55)
[2018-05-01 14:03] LABS: CREATININE, RANDOM URINE 69 mg/dL (20-370); MICROALBUMIN 98.7 mg/dL; MICROALBUMIN/CREATININE RATIO 1430 (<30)
== END 2018-04-13 14:30 | disposition home or self-care (01) | DRG 371 ==
LOC: TEL 19:24 → E/R 17:12 → TEL 04-10 00:49
PROC: 0DB68ZX Excision of Stomach, Via Natural or Artificial Opening Endoscopic, Diagnostic (ICD-10-PCS; principal; 2018-04-10 11:30)
PROC: 0DDM8ZX Extraction of Descending Colon, Via Natural or Artificial Opening Endoscopic, Diagnostic (ICD-10-PCS; 2018-04-10 11:30)
PROC: 0DDL8ZX Extraction of Transverse Colon, Via Natural or Artificial Opening Endoscopic, Diagnostic (ICD-10-PCS; 2018-04-10 11:30)
PROC: 30233N1 Transfusion of Nonautologous Red Blood Cells into Peripheral Vein, Percutaneous Approach (ICD-10-PCS; 2018-04-10 11:30)
DX: A04.72 Enterocolitis due to Clostridium difficile, not specified as recurrent (principal); K29.71 Gastritis, unspecified, with bleeding; N17.0 Acute kidney failure with tubular necrosis; G93.40 Encephalopathy, unspecified; N18.5 Chronic kidney disease, stage 5; N17.9 Acute kidney failure, unspecified; D62 Acute posthemorrhagic anemia; I12.0 Hypertensive chronic kidney disease with stage 5 chronic kidney disease or end stage renal disease; D64.9 Anemia, unspecified; K21.0 Gastro-esophageal reflux disease with esophagitis; Q27.33 Arteriovenous malformation of digestive system vessel; E87.5 Hyperkalemia; K64.9 Unspecified hemorrhoids; K57.90 Diverticulosis of intestine, part unspecified, without perforation or abscess without bleeding; N28.1 Cyst of kidney, acquired; R53.81 Other malaise
CPT/HCPCS: 36415; 36430; 80048; 80053; 80061; 81001; 81003; 82043; 82962; 83036; 83735; 84100; 84132; 84155; 84300; 84439; 84443; 84484; 85014; 85018; 85025; 85610; 85730; 86850; 86900; 86901; 86920; 87075; 88305; 92526; 92610; 93005; 96374; 97116; 97162; 97165; 97530; 99291-25

== ENCOUNTER 2018-06-16 12:48 | Inpatient (IN) | payer MEDICARE, OTHER ==
[2018-06-16] MEDS: SOD CHLORIDE 0.9% 500 ML IV (13:31)
[2018-06-16 13:54] LABS: ADD MAN DIFF? NO
[2018-06-16 13:57] LABS: ABNORMAL IP MESSAGE 1; BASOPHILS % 0.1 % (0.0-2.0); EOSINOPHILS % 0.3 % (0.0-7.0); HEMATOCRIT 13.9 % (42.0-52.0); LYMPHOCYTES # 0.8 10^3/ul (0.8-2.9); LYMPHOCYTES % 11.6 % (15.0-51.0); MEAN CORPUSCULAR HEMOGLOBIN 31.9 pg (29.0-33.0); MEAN CORPUSCULAR HGB CONC 31.7 g/dl (32.0-37.0); MEAN CORPUSCULAR VOLUME 100.7 fl (82.0-101.0); MEAN PLATELET VOLUME 12.2 fl (7.4-10.4); MONOCYTE # 0.8 10^3/ul (0.3-0.9); MONOCYTES % 11.8 % (0.0-11.0); NEUTROPHIL # 5.1 10^3/ul (1.6-7.5); NEUTROPHILS % 74.9 % (39.0-77.0); PLATELET COUNT 79 10^3/UL (140-415); POSITIVE DIFF @See below; RED BLOOD COUNT 1.38 10^6/ul (4.70-6.10); RED CELL DISTRIBUTION WIDTH 20.1 % (11.5-14.5)
[2018-06-16 13:57] LABS: WHITE BLOOD COUNT 6.8 10^3/ul (4.8-10.8)
[2018-06-16 14:15] LABS: ALANINE AMINOTRANSFERASE 22 IU/L (13-69); ALBUMIN 2.5 g/dl (3.3-4.9); ALBUMIN/GLOBULIN RATIO 1.08; ALKALINE PHOSPHATASE 90 IU/L (42-121); ANION GAP 11 (8-16); ASPARTATE AMINO TRANSFERASE 16 IU/L (15-46); BLOOD UREA NITROGEN 70 mg/dl (7-20); CALCIUM 7.7 mg/dl (8.4-10.2); CARBON DIOXIDE 26 mmol/L (21-31); CHLORIDE 106 mmol/L (97-110); GLUCOSE 108 mg/dl (70-220); HEMOGLOBIN 4.4 g/dl (14.0-18.0); PATH REVIEW? YES; POTASSIUM 4.4 mmol/L (3.5-5.1); SODIUM 139 mmol/L (135-144); TOTAL PROTEIN 4.8 g/dl (6.1-8.1)
[2018-06-16 14:26] LABS: TROPONIN-I < 0.012 ng/ml (0.000-0.120)
[2018-06-16] MEDS: PANTOPRAZOLE IV 80 MG in SOD CHLORIDE 0.9% 100 ML IVPB (14:51)
[2018-06-16] MEDS: PANTOPRAZOLE IV 80 MG in SOD CHLORIDE 0.9% 100 ML IV (14:51)
[2018-06-16] MEDS ORDERED: ACETAMINOPHEN 325 MG TAB PO (15:30)
[2018-06-16] MEDS ORDERED: ONDANSETRON 4 MG INJ IV (15:30)
[2018-06-16] MEDS: SOD CHLORIDE 0.9% 1,000 ML IV ×2 (18:54→22:32)
[2018-06-17 01:24] LABS: IMMEDIATE SPIN CROSSMATCH 1 4
[2018-06-17 08:57] LABS: ADD MAN DIFF? NO
[2018-06-17 09:04] LABS: ABNORMAL IP MESSAGE 1; BASOPHIL # 0.1 10^3/ul (0.0-0.1); BASOPHILS % 1.2 % (0.0-2.0); EOSINOPHILS # 0.2 10^3/ul (0.0-0.5); EOSINOPHILS % 2.5 % (0.0-7.0); HEMATOCRIT 26.9 % (42.0-52.0); HEMOGLOBIN 8.9 g/dl (14.0-18.0); LYMPHOCYTES # 0.9 10^3/ul (0.8-2.9); LYMPHOCYTES % 11.3 % (15.0-51.0); MEAN CORPUSCULAR HGB CONC 33.1 g/dl (32.0-37.0); MEAN CORPUSCULAR VOLUME 90.6 fl (82.0-101.0); MEAN PLATELET VOLUME 12.7 fl (7.4-10.4); MONOCYTE # 1.1 10^3/ul (0.3-0.9); MONOCYTES % 13.2 % (0.0-11.0); NEUTROPHIL # 5.8 10^3/ul (1.6-7.5); NEUTROPHILS % 70.6 % (39.0-77.0); POSITIVE DIFF @See below; RED BLOOD COUNT 2.97 10^6/ul (4.70-6.10); RED CELL DISTRIBUTION WIDTH 18.4 % (11.5-14.5)
[2018-06-17 09:04] LABS: WHITE BLOOD COUNT 8.2 10^3/ul (4.8-10.8)
[2018-06-17 09:09] LABS: PLATELET COUNT 77 10^3/UL (140-415)
[2018-06-17] MEDS ORDERED: NA PHOSPHATE/BIPHOS 133 ML ENEMA PR (09:30)
[2018-06-17] MEDS ORDERED: morphine 2 MG INJ IV (09:30)
[2018-06-17] MEDS ORDERED: NACL 0.9% 3 ML SYG IV (09:30)
[2018-06-17] MEDS ORDERED: hydrALAzine 20 MG INJ IV (09:30)
[2018-06-17] MEDS ORDERED: ACETAMINOPHEN 325 MG TAB PO (09:30)
[2018-06-17] MEDS ORDERED: HYDROCODONE/APAP (5/325) TAB PO (09:30)
[2018-06-17] MEDS ORDERED: MAGNESIUM HYDROXIDE 30ML CUP PO (09:30)
[2018-06-17] MEDS ORDERED: LORAZEPAM 2 MG INJ IV (09:30)
[2018-06-17] MEDS ORDERED: NITROGLYCERIN (SL) 0.4 MG TAB SL (09:30)
[2018-06-17] MEDS: BENAZEPRIL 40 MG TAB PO ×2 (09:30→12:20)
[2018-06-17] MEDS ORDERED: ALBUTEROL/IPRATROPIUM (NEB) 3 ML AMP HHN (09:30)
[2018-06-17] MEDS: AMLODIPINE 10 MG TAB PO ×2 (09:30→12:20)
[2018-06-17] MEDS ORDERED: DOCUSATE SODIUM 100 MG CAP PO (09:30)
[2018-06-17] MEDS ORDERED: ONDANSETRON 4 MG INJ IV (09:30)
[2018-06-17 09:32] LABS: B-TYPE NATRIURETIC PEPTIDE 9540 PG/ML (0-125)
[2018-06-17] MEDS: NICOTINE (14 MG/24 HR) PATCH TRANSDERM (10:23)
[2018-06-17] MEDS: SOD CHLORIDE 0.45% 1,000 ML IV ×2 (10:24→22:50)
[2018-06-17 10:41] LABS: INR 1.09; PARTIAL THROMBOPLASTIN TIME 32.5 Sec (23.0-35.0); PROTIME 14.2 Sec (11.9-14.9); PT RATIO 1.1
[2018-06-17 12:59] LABS: FREE T4 (FREE THYROXINE) 1.03 ng/dl (0.78-2.44)
[2018-06-17 13:12] LABS: HEPATITIS B SURFACE ANTIGEN NEGATIVE (NEGATIVE)
[2018-06-17] MEDS: PANTOPRAZOLE 40 MG INJ IV (18:16)
[2018-06-17] MEDS: EPOETIN 10000 UNITS/1 ML INJ (ESRD) SC (18:41)
[2018-06-17] MEDS: HEPARIN 1000 UNITS/ML 10 ML INJ CATHETER (20:11)
[2018-06-17] MEDS: TERAZOSIN 5 MG CAP PO (21:22)
[2018-06-18] MEDS: PANTOPRAZOLE 40 MG INJ IV ×2 (05:19→17:43)
[2018-06-18 06:04] LABS: ADD MAN DIFF? NO
[2018-06-18 06:17] LABS: ABNORMAL IP MESSAGE 1; BASOPHIL # 0.1 10^3/ul (0.0-0.1); BASOPHILS % 0.8 % (0.0-2.0); EOSINOPHILS # 0.2 10^3/ul (0.0-0.5); EOSINOPHILS % 3.2 % (0.0-7.0); HEMATOCRIT 22.3 % (42.0-52.0); HEMOGLOBIN 7.5 g/dl (14.0-18.0); LYMPHOCYTES # 0.9 10^3/ul (0.8-2.9); LYMPHOCYTES % 12.8 % (15.0-51.0); MEAN CORPUSCULAR HEMOGLOBIN 30.5 pg (29.0-33.0); MEAN CORPUSCULAR HGB CONC 33.6 g/dl (32.0-37.0); MEAN CORPUSCULAR VOLUME 90.7 fl (82.0-101.0); MEAN PLATELET VOLUME 12.7 fl (7.4-10.4); NEUTROPHIL # 4.9 10^3/ul (1.6-7.5); NEUTROPHILS % 68.6 % (39.0-77.0); PLATELET COUNT 62 10^3/UL (140-415); POSITIVE DIFF @See below; RED BLOOD COUNT 2.46 10^6/ul (4.70-6.10)
[2018-06-18 06:17] LABS: WHITE BLOOD COUNT 7.1 10^3/ul (4.8-10.8)
[2018-06-18 06:20] LABS: HEMOGLOBIN A1C 4.9 % (0-5.9)
[2018-06-18 06:33] LABS: ANION GAP 7 (8-16); BLOOD UREA NITROGEN 39 mg/dl (7-20); CALCIUM 7.4 mg/dl (8.4-10.2); CARBON DIOXIDE 28 mmol/L (21-31); CHLORIDE 106 mmol/L (97-110); CHOL/HDL RATIO 6.8 RATIO; CHOLESTEROL 117 mg/dl (100-200); CREATININE 2.29 mg/dl (0.61-1.24); GLUCOSE 89 mg/dl (70-220); HDL CHOLESTEROL 17 mg/dl (31-75); LDL CHOLESTEROL,CALCULATED 66 mg/dl; MAGNESIUM 1.7 mg/dl (1.7-2.5); PHOSPHORUS 2.4 mg/dl (2.5-4.9); POTASSIUM 3.9 mmol/L (3.5-5.1); SODIUM 137 mmol/L (135-144); TRIGLYCERIDES 168 mg/dl (0-149)
[2018-06-18] MEDS: AMLODIPINE 10 MG TAB PO (08:34)
[2018-06-18] MEDS: BENAZEPRIL 40 MG TAB PO (08:34)
[2018-06-18] MEDS: NICOTINE (14 MG/24 HR) PATCH TRANSDERM (08:34)
[2018-06-18] MEDS: NEUTRA-PHOS 250 MG PACKET PO (09:26)
[2018-06-18] MEDS: SOD CHLORIDE 0.9% 250 ML IV* (12:45)
[2018-06-18] MEDS: SODIUM PHOSPHATE 15 MMOL in SOD CHLORIDE 0.9% 250 ML IVPB (17:44)
[2018-06-18] MEDS: TERAZOSIN 5 MG CAP PO (20:47)
[2018-06-19] MEDS: PANTOPRAZOLE 40 MG INJ IV ×2 (05:32→17:35)
[2018-06-19 06:13] LABS: ADD MAN DIFF? NO
[2018-06-19 06:21] LABS: WHITE BLOOD COUNT 6.8 10^3/ul (4.8-10.8)
[2018-06-19 06:21] LABS: ABNORMAL IP MESSAGE 1; BASOPHIL # 0.1 10^3/ul (0.0-0.1); EOSINOPHILS # 0.3 10^3/ul (0.0-0.5); EOSINOPHILS % 4.6 % (0.0-7.0); HEMATOCRIT 25.2 % (42.0-52.0); HEMOGLOBIN 8.4 g/dl (14.0-18.0); LYMPHOCYTES # 0.9 10^3/ul (0.8-2.9); LYMPHOCYTES % 13.1 % (15.0-51.0); MEAN CORPUSCULAR HEMOGLOBIN 30.7 pg (29.0-33.0); MEAN CORPUSCULAR HGB CONC 33.3 g/dl (32.0-37.0); MEAN PLATELET VOLUME 12.5 fl (7.4-10.4); MONOCYTES % 14.8 % (0.0-11.0); NEUTROPHIL # 4.5 10^3/ul (1.6-7.5); NEUTROPHILS % 65.9 % (39.0-77.0); PLATELET COUNT 59 10^3/UL (140-415); POSITIVE DIFF @See below; RED BLOOD COUNT 2.74 10^6/ul (4.70-6.10); RED CELL DISTRIBUTION WIDTH 18.9 % (11.5-14.5)
[2018-06-19 06:42] LABS: ANION GAP 11 (8-16); BLOOD UREA NITROGEN 47 mg/dl (7-20); CALCIUM 7.2 mg/dl (8.4-10.2); CARBON DIOXIDE 23 mmol/L (21-31); CHLORIDE 107 mmol/L (97-110); CREATININE 3.02 mg/dl (0.61-1.24); GLUCOSE 93 mg/dl (70-220); POTASSIUM 4.3 mmol/L (3.5-5.1); SODIUM 137 mmol/L (135-144)
[2018-06-19] MEDS: BENAZEPRIL 40 MG TAB PO (09:05)
[2018-06-19] MEDS: AMLODIPINE 10 MG TAB PO (09:05)
[2018-06-19] MEDS: NICOTINE (14 MG/24 HR) PATCH TRANSDERM (09:06)
[2018-06-19] MEDS: MAGNESIUM CITRATE 300 ML BTL PO (16:51)
[2018-06-19] MEDS: BISACODYL (EC) 5 MG TAB PO (16:51)
[2018-06-19] MEDS: POLYETHYLENE GLYCOL 3350 119 GM POWDER PO (17:35)
[2018-06-19] MEDS: TERAZOSIN 5 MG CAP PO (21:14)
[2018-06-20] MEDS: POLYETHYLENE GLYCOL 3350 119 GM POWDER PO ×2 (06:00→06:39)
[2018-06-20 06:13] LABS: ADD MAN DIFF? NO
[2018-06-20] MEDS: PANTOPRAZOLE 40 MG INJ IV ×2 (06:16→21:51)
[2018-06-20 06:25] LABS: ABNORMAL IP MESSAGE 1; BASOPHIL # 0.1 10^3/ul (0.0-0.1); BASOPHILS % 0.7 % (0.0-2.0); EOSINOPHILS # 0.2 10^3/ul (0.0-0.5); EOSINOPHILS % 3.1 % (0.0-7.0); HEMATOCRIT 22.4 % (42.0-52.0); HEMOGLOBIN 7.3 g/dl (14.0-18.0); LYMPHOCYTES # 0.6 10^3/ul (0.8-2.9); LYMPHOCYTES % 9.2 % (15.0-51.0); MEAN CORPUSCULAR HEMOGLOBIN 30.8 pg (29.0-33.0); MEAN CORPUSCULAR HGB CONC 32.6 g/dl (32.0-37.0); MEAN CORPUSCULAR VOLUME 94.5 fl (82.0-101.0); MEAN PLATELET VOLUME 12.7 fl (7.4-10.4); MONOCYTE # 0.9 10^3/ul (0.3-0.9); MONOCYTES % 13.5 % (0.0-11.0); NEUTROPHILS % 72.9 % (39.0-77.0); PLATELET COUNT 75 10^3/UL (140-415); POSITIVE DIFF @See below; RED BLOOD COUNT 2.37 10^6/ul (4.70-6.10); RED CELL DISTRIBUTION WIDTH 19.3 % (11.5-14.5)
[2018-06-20 06:25] LABS: WHITE BLOOD COUNT 6.8 10^3/ul (4.8-10.8)
[2018-06-20 06:55] LABS: ANION GAP 10 (8-16); BLOOD UREA NITROGEN 62 mg/dl (7-20); CALCIUM 7.5 mg/dl (8.4-10.2); CARBON DIOXIDE 23 mmol/L (21-31); CHLORIDE 111 mmol/L (97-110); CREATININE 3.82 mg/dl (0.61-1.24); GLUCOSE 83 mg/dl (70-220); POTASSIUM 3.9 mmol/L (3.5-5.1); SODIUM 140 mmol/L (135-144)
[2018-06-20] MEDS: AMLODIPINE 10 MG TAB PO (08:05)
[2018-06-20] MEDS: BISACODYL (EC) 5 MG TAB PO (08:05)
[2018-06-20] MEDS: BENAZEPRIL 40 MG TAB PO (08:06)
[2018-06-20] MEDS: NICOTINE (14 MG/24 HR) PATCH TRANSDERM (08:06)
[2018-06-20] MEDS: PROPOFOL 60 ML (14:03)
[2018-06-20] MEDS: LIDOCAINE 2% (SDV) 5 ML INJ (14:03)
[2018-06-20] MEDS: EPOETIN 10000 UNITS/1 ML INJ (ESRD) SC (17:00)
[2018-06-20] MEDS: HEPARIN 1000 UNITS/ML 10 ML INJ CATHETER (20:08)
[2018-06-20] MEDS: TERAZOSIN 5 MG CAP PO (21:51)
[2018-06-20] MEDS ORDERED: morphine LIQ (10 MG/5 ML) CUP PO (22:00)
[2018-06-21 05:37] LABS: ADD MAN DIFF? NO
[2018-06-21 05:40] LABS: ABNORMAL IP MESSAGE 1; BASOPHILS % 0.5 % (0.0-2.0); EOSINOPHILS # 0.2 10^3/ul (0.0-0.5); EOSINOPHILS % 2.9 % (0.0-7.0); HEMATOCRIT 20.4 % (42.0-52.0); LYMPHOCYTES # 0.8 10^3/ul (0.8-2.9); LYMPHOCYTES % 11.1 % (15.0-51.0); MEAN CORPUSCULAR HEMOGLOBIN 31.5 pg (29.0-33.0); MEAN CORPUSCULAR HGB CONC 32.8 g/dl (32.0-37.0); MEAN CORPUSCULAR VOLUME 95.8 fl (82.0-101.0); MEAN PLATELET VOLUME 12.1 fl (7.4-10.4); MONOCYTE # 0.8 10^3/ul (0.3-0.9); MONOCYTES % 10.3 % (0.0-11.0); NEUTROPHIL # 5.6 10^3/ul (1.6-7.5); NEUTROPHILS % 74.7 % (39.0-77.0); PLATELET COUNT 68 10^3/UL (140-415); POSITIVE DIFF @See below; RED BLOOD COUNT 2.13 10^6/ul (4.70-6.10); RED CELL DISTRIBUTION WIDTH 19.8 % (11.5-14.5)
[2018-06-21 05:40] LABS: WHITE BLOOD COUNT 7.5 10^3/ul (4.8-10.8)
[2018-06-21 06:07] LABS: HEMOGLOBIN 6.7 g/dl (14.0-18.0)
[2018-06-21] MEDS: PANTOPRAZOLE 40 MG INJ IV (06:10)
[2018-06-21 06:47] LABS: ANION GAP 7 (8-16); BLOOD UREA NITROGEN 28 mg/dl (7-20); CALCIUM 7.1 mg/dl (8.4-10.2); CARBON DIOXIDE 28 mmol/L (21-31); CHLORIDE 109 mmol/L (97-110); CREATININE 2.32 mg/dl (0.61-1.24); GLUCOSE 100 mg/dl (70-220); POTASSIUM 3.9 mmol/L (3.5-5.1); SODIUM 140 mmol/L (135-144)
[2018-06-21] MEDS: EPOETIN 10000 UNITS/1 ML INJ (ESRD) SC (08:35)
[2018-06-21] MEDS: NICOTINE (14 MG/24 HR) PATCH TRANSDERM (08:36)
[2018-06-21] MEDS: AMLODIPINE 10 MG TAB PO (08:36)
[2018-06-21] MEDS: BENAZEPRIL 40 MG TAB PO (08:36)
[2018-06-21] MEDS: SOD CHLORIDE 0.9% 250 ML IV* (10:14)
[2018-06-21 10:24] LABS: HEMOGLOBIN 7.3 g/dl (14.0-18.0)
[2018-06-21 11:40] LABS: IMMEDIATE SPIN CROSSMATCH 1 1
== END 2018-06-21 17:01 | disposition home or self-care (01) | DRG 377 ==
LOC: E/R 12:48 → 6WM 15:22
PROC: 0W3P8ZZ Control Bleeding in Gastrointestinal Tract, Via Natural or Artificial Opening Endoscopic (ICD-10-PCS; principal; 2018-06-20 13:00)
PROC: 0DBE8ZX Excision of Large Intestine, Via Natural or Artificial Opening Endoscopic, Diagnostic (ICD-10-PCS; 2018-06-20 13:00)
PROC: 5A1D70Z Performance of Urinary Filtration, Intermittent, Less than 6 Hours Per Day (ICD-10-PCS; 2018-06-20 13:00)
PROC: 30233N1 Transfusion of Nonautologous Red Blood Cells into Peripheral Vein, Percutaneous Approach (ICD-10-PCS; 2018-06-20 13:00)
DX: K31.811 Angiodysplasia of stomach and duodenum with bleeding (principal); N18.6 End stage renal disease; D62 Acute posthemorrhagic anemia; I12.0 Hypertensive chronic kidney disease with stage 5 chronic kidney disease or end stage renal disease; R55 Syncope and collapse; F17.200 Nicotine dependence, unspecified, uncomplicated; I35.0 Nonrheumatic aortic (valve) stenosis; Z99.2 Dependence on renal dialysis
CPT/HCPCS: 36430; 70450; 71045; 78278; 80048; 80053; 80061; 83036; 83735; 83880; 84100; 84439; 84443; 84484; 85014; 85018; 85025; 85610; 85730; 86850; 86900; 86901; 86920; 87340; 88305; 90935; 93005; 93306; 96374; 97161; 99291-25

== ENCOUNTER 2018-06-22 19:35 | Inpatient (IN) | payer MEDICARE, OTHER ==
[2018-06-22] MEDS: LIDOCAINE/MYLANTA 40 ML BTL PO (20:20)
[2018-06-22 21:12] LABS: WHITE BLOOD COUNT 10.3 10^3/ul (4.8-10.8)
[2018-06-22 21:12] LABS: ABNORMAL IP MESSAGE 1; HEMATOCRIT 16.4 % (42.0-52.0); MEAN CORPUSCULAR HEMOGLOBIN 31.6 pg (29.0-33.0); MEAN CORPUSCULAR HGB CONC 32.9 g/dl (32.0-37.0); MEAN CORPUSCULAR VOLUME 95.9 fl (82.0-101.0); MEAN PLATELET VOLUME 13.5 fl (7.4-10.4); NUCLEATED RED BLOOD CELLS% 0.2 /100WBC (0.0-0.0); PLATELET COUNT 66 10^3/UL (140-415); POSITIVE DIFF @See below; RED BLOOD COUNT 1.71 10^6/ul (4.70-6.10); RED CELL DISTRIBUTION WIDTH 19.6 % (11.5-14.5)
[2018-06-22 21:17] LABS: ADD MAN DIFF? YES; HEMOGLOBIN 5.4 g/dl (14.0-18.0); PATH REVIEW? YES
[2018-06-22 21:31] LABS: ALANINE AMINOTRANSFERASE 17 IU/L (13-69); ALBUMIN 2.2 g/dl (3.3-4.9); ALKALINE PHOSPHATASE 82 IU/L (42-121); ANION GAP 11 (8-16); ASPARTATE AMINO TRANSFERASE 13 IU/L (15-46); BLOOD UREA NITROGEN 81 mg/dl (7-20); CALCIUM 7.1 mg/dl (8.4-10.2); CARBON DIOXIDE 22 mmol/L (21-31); CHLORIDE 110 mmol/L (97-110); CREATININE 4.22 mg/dl (0.61-1.24); GLUCOSE 90 mg/dl (70-220); POTASSIUM 4.9 mmol/L (3.5-5.1); PROTIME 13.3 Sec (11.9-14.9); SODIUM 138 mmol/L (135-144); TOTAL PROTEIN 4.4 g/dl (6.1-8.1)
[2018-06-22 21:37] LABS: PARTIAL THROMBOPLASTIN TIME 27.5 Sec (23.0-35.0)
[2018-06-22] MEDS: PANTOPRAZOLE IV 80 MG in SOD CHLORIDE 0.9% 100 ML IVPB (22:02)
[2018-06-22] MEDS: PANTOPRAZOLE IV 80 MG in SOD CHLORIDE 0.9% 100 ML IV (22:20)
[2018-06-22] MEDS ORDERED: ONDANSETRON 4 MG INJ IV (22:30)
[2018-06-22] MEDS ORDERED: ACETAMINOPHEN 325 MG TAB PO (22:30)
[2018-06-22 22:44] LABS: ANISOCYTOSIS 2+ (0-0); EOSINOPHILS % (M) 2 % (0-7); GIANT THROMBO% (M) 1 % (0-0); LYMPHOCYTES #M 1.3 10^3/ul (0.8-2.9); LYMPHOCYTES % (M) 13 % (15-51); MICROCYTOSIS 2+ (0-0); MONOCYTE #M 0.9 10^3/ul (0.3-0.9); MONOCYTES % (M) 9 % (0-11); PLATELET MORPHOLOGY COMMENT @See below; POLYCHROMASIA 1+ (0-0); SEGMENTED NEUTROPHILS (M) % 77 % (39-77)
[2018-06-23] MEDS: SOD CHLORIDE 0.9% 1,000 ML IV (06:53)
[2018-06-23] MEDS: AMLODIPINE 10 MG TAB PO (08:20)
[2018-06-23] MEDS ORDERED: NACL 0.9% 3 ML SYG IV (08:30)
[2018-06-23] MEDS ORDERED: ACETAMINOPHEN 325 MG TAB PO (08:30)
[2018-06-23] MEDS ORDERED: ONDANSETRON 4 MG INJ IV (08:30)
[2018-06-23 09:42] LABS: ADD MAN DIFF? NO
[2018-06-23 09:44] LABS: WHITE BLOOD COUNT 9.5 10^3/ul (4.8-10.8)
[2018-06-23 09:44] LABS: ABNORMAL IP MESSAGE 1; BASOPHIL # 0.1 10^3/ul (0.0-0.1); BASOPHILS % 0.6 % (0.0-2.0); EOSINOPHILS # 0.5 10^3/ul (0.0-0.5); EOSINOPHILS % 4.7 % (0.0-7.0); HEMATOCRIT 22.6 % (42.0-52.0); HEMOGLOBIN 7.4 g/dl (14.0-18.0); LYMPHOCYTES % 10.9 % (15.0-51.0); MEAN CORPUSCULAR HEMOGLOBIN 29.8 pg (29.0-33.0); MEAN CORPUSCULAR HGB CONC 32.7 g/dl (32.0-37.0); MEAN CORPUSCULAR VOLUME 91.1 fl (82.0-101.0); MEAN PLATELET VOLUME 12.9 fl (7.4-10.4); MONOCYTE # 0.7 10^3/ul (0.3-0.9); MONOCYTES % 7.1 % (0.0-11.0); NEUTROPHIL # 7.2 10^3/ul (1.6-7.5); NEUTROPHILS % 75.8 % (39.0-77.0); NUCLEATED RED BLOOD CELLS% 0.2 /100WBC (0.0-0.0); PLATELET COUNT 72 10^3/UL (140-415); POSITIVE DIFF @See below; RED BLOOD COUNT 2.48 10^6/ul (4.70-6.10); RED CELL DISTRIBUTION WIDTH 18.6 % (11.5-14.5)
[2018-06-23 11:33] LABS: ADD MAN DIFF? NO
[2018-06-23 11:42] LABS: WHITE BLOOD COUNT 10.7 10^3/ul (4.8-10.8)
[2018-06-23 11:42] LABS: ABNORMAL IP MESSAGE 1; BASOPHIL # 0.1 10^3/ul (0.0-0.1); BASOPHILS % 0.9 % (0.0-2.0); EOSINOPHILS # 0.5 10^3/ul (0.0-0.5); EOSINOPHILS % 4.2 % (0.0-7.0); HEMATOCRIT 24.2 % (42.0-52.0); HEMOGLOBIN 7.8 g/dl (14.0-18.0); LYMPHOCYTES # 1.2 10^3/ul (0.8-2.9); LYMPHOCYTES % 10.9 % (15.0-51.0); MEAN CORPUSCULAR HEMOGLOBIN 29.4 pg (29.0-33.0); MEAN CORPUSCULAR HGB CONC 32.2 g/dl (32.0-37.0); MEAN CORPUSCULAR VOLUME 91.3 fl (82.0-101.0); MEAN PLATELET VOLUME 13.1 fl (7.4-10.4); MONOCYTE # 0.7 10^3/ul (0.3-0.9); MONOCYTES % 6.7 % (0.0-11.0); NEUTROPHIL # 8.1 10^3/ul (1.6-7.5); NEUTROPHILS % 76.1 % (39.0-77.0); NUCLEATED RED BLOOD CELLS% 0.2 /100WBC (0.0-0.0); PLATELET COUNT 77 10^3/UL (140-415); POSITIVE DIFF @See below; RED BLOOD COUNT 2.65 10^6/ul (4.70-6.10); RED CELL DISTRIBUTION WIDTH 19.1 % (11.5-14.5)
[2018-06-23 13:04] LABS: OCCULT BLOOD STOOL POSITIVE (NEGATIVE)
[2018-06-23] MEDS: HEPARIN 1000 UNITS/ML 10 ML INJ CATHETER (15:47)
[2018-06-23] MEDS: PANTOPRAZOLE (EC) 40 MG TAB PO (17:07)
[2018-06-23] MEDS: EPOETIN 10000 UNITS/1 ML INJ (ESRD) SC (17:07)
[2018-06-23 18:14] LABS: ABNORMAL IP MESSAGE 1; HEMATOCRIT 17.7 % (42.0-52.0); MEAN CORPUSCULAR HEMOGLOBIN 29.8 pg (29.0-33.0); MEAN CORPUSCULAR HGB CONC 33.3 g/dl (32.0-37.0); MEAN CORPUSCULAR VOLUME 89.4 fl (82.0-101.0); MEAN PLATELET VOLUME 13.2 fl (7.4-10.4); PLATELET COUNT 77 10^3/UL (140-415); POSITIVE DIFF @See below; RED BLOOD COUNT 1.98 10^6/ul (4.70-6.10); RED CELL DISTRIBUTION WIDTH 19.2 % (11.5-14.5)
[2018-06-23 18:14] LABS: WHITE BLOOD COUNT 9.6 10^3/ul (4.8-10.8)
[2018-06-23 18:17] LABS: ADD MAN DIFF? YES; HEMOGLOBIN 5.9 g/dl (14.0-18.0)
[2018-06-23] MEDS: SOD CHLORIDE 0.9% 250 ML IV* ×2 (18:20→18:35)
[2018-06-23 19:18] LABS: ANISOCYTOSIS 1+ (0-0); BAND NEUTROPHILS % (M) 1 % (0-4); BASOPHILS % (M) 1 % (0-2); EOSINOPHILS % (M) 3 % (0-7); GIANT THROMBO% (M) 3 % (0-0); LYMPHOCYTES #M 0.7 10^3/ul (0.8-2.9); LYMPHOCYTES % (M) 8 % (15-51); MICROCYTOSIS 1+ (0-0); MONOCYTE #M 0.2 10^3/ul (0.3-0.9); MONOCYTES % (M) 3 % (0-11); PLATELET ESTIMATE DECREASED; SEG NEUT #M 8.1 10^3/ul (1.6-7.5); SEGMENTED NEUTROPHILS (M) % 84 % (39-77); SMUDGE%M 1 % (0-0)
[2018-06-23 22:59] LABS: IMMEDIATE SPIN CROSSMATCH 1 6
[2018-06-24 03:20] LABS: ADD MAN DIFF? NO
[2018-06-24 03:24] LABS: ABNORMAL IP MESSAGE 1; BASOPHIL # 0.1 10^3/ul (0.0-0.1); BASOPHILS % 0.8 % (0.0-2.0); EOSINOPHILS # 0.4 10^3/ul (0.0-0.5); EOSINOPHILS % 3.7 % (0.0-7.0); HEMATOCRIT 24.6 % (42.0-52.0); HEMOGLOBIN 8.2 g/dl (14.0-18.0); LYMPHOCYTES # 1.4 10^3/ul (0.8-2.9); LYMPHOCYTES % 14.3 % (15.0-51.0); MEAN CORPUSCULAR HEMOGLOBIN 29.2 pg (29.0-33.0); MEAN CORPUSCULAR HGB CONC 33.3 g/dl (32.0-37.0); MEAN CORPUSCULAR VOLUME 87.5 fl (82.0-101.0); MEAN PLATELET VOLUME 13.2 fl (7.4-10.4); MONOCYTES % 10.3 % (0.0-11.0); PLATELET COUNT 78 10^3/UL (140-415); POSITIVE DIFF @See below; RED BLOOD COUNT 2.81 10^6/ul (4.70-6.10); RED CELL DISTRIBUTION WIDTH 18.6 % (11.5-14.5)
[2018-06-24] MEDS: PANTOPRAZOLE (EC) 40 MG TAB PO ×2 (06:29→17:21)
[2018-06-24 06:47] LABS: ADD MAN DIFF? NO
[2018-06-24 06:51] LABS: ABNORMAL IP MESSAGE 1; BASOPHIL # 0.1 10^3/ul (0.0-0.1); EOSINOPHILS # 0.4 10^3/ul (0.0-0.5); EOSINOPHILS % 3.7 % (0.0-7.0); HEMOGLOBIN 8.2 g/dl (14.0-18.0); LYMPHOCYTES # 1.2 10^3/ul (0.8-2.9); LYMPHOCYTES % 12.6 % (15.0-51.0); MEAN CORPUSCULAR HGB CONC 32.8 g/dl (32.0-37.0); MEAN CORPUSCULAR VOLUME 88.3 fl (82.0-101.0); MEAN PLATELET VOLUME 13.5 fl (7.4-10.4); MONOCYTE # 0.9 10^3/ul (0.3-0.9); MONOCYTES % 9.7 % (0.0-11.0); NEUTROPHIL # 6.8 10^3/ul (1.6-7.5); PLATELET COUNT 79 10^3/UL (140-415); POSITIVE DIFF @See below; RED BLOOD COUNT 2.83 10^6/ul (4.70-6.10); RED CELL DISTRIBUTION WIDTH 18.7 % (11.5-14.5)
[2018-06-24 06:51] LABS: WHITE BLOOD COUNT 9.5 10^3/ul (4.8-10.8)
[2018-06-24] MEDS: AMLODIPINE 10 MG TAB PO (09:06)
[2018-06-24 10:44] LABS: ANION GAP 8 (8-16); BLOOD UREA NITROGEN 56 mg/dl (7-20); CALCIUM 7.1 mg/dl (8.4-10.2); CARBON DIOXIDE 27 mmol/L (21-31); CHLORIDE 110 mmol/L (97-110); GLUCOSE 87 mg/dl (70-220); POTASSIUM 4.4 mmol/L (3.5-5.1); SODIUM 141 mmol/L (135-144)
[2018-06-24] MEDS: ETOMIDATE 20 MG INJ (14:05)
[2018-06-24] MEDS: LIDOCAINE 2% (SDV) 5 ML INJ (14:05)
[2018-06-24] MEDS: PROPOFOL 20 ML (14:05)
[2018-06-24] MEDS: hydrALAzine 20 MG INJ (14:26)
[2018-06-24] MEDS: morphine 2 MG INJ IV (15:17)
[2018-06-24] MEDS ORDERED: morphine 2 MG INJ IV (16:00)
[2018-06-24 17:00] LABS: WHITE BLOOD COUNT 11.4 10^3/ul (4.8-10.8)
[2018-06-24 17:00] LABS: ABNORMAL IP MESSAGE 1; ADD MAN DIFF? NO; BASOPHIL # 0.1 10^3/ul (0.0-0.1); BASOPHILS % 0.8 % (0.0-2.0); EOSINOPHILS # 0.1 10^3/ul (0.0-0.5); EOSINOPHILS % 1.2 % (0.0-7.0); HEMATOCRIT 25.7 % (42.0-52.0); HEMOGLOBIN 8.4 g/dl (14.0-18.0); LYMPHOCYTES # 1.2 10^3/ul (0.8-2.9); LYMPHOCYTES % 10.9 % (15.0-51.0); MEAN CORPUSCULAR HEMOGLOBIN 29.7 pg (29.0-33.0); MEAN CORPUSCULAR HGB CONC 32.7 g/dl (32.0-37.0); MEAN CORPUSCULAR VOLUME 90.8 fl (82.0-101.0); MEAN PLATELET VOLUME 13.1 fl (7.4-10.4); MONOCYTE # 1.1 10^3/ul (0.3-0.9); MONOCYTES % 9.2 % (0.0-11.0); NEUTROPHIL # 8.8 10^3/ul (1.6-7.5); NEUTROPHILS % 77.3 % (39.0-77.0); PLATELET COUNT 94 10^3/UL (140-415); POSITIVE DIFF @See below; RED BLOOD COUNT 2.83 10^6/ul (4.70-6.10); RED CELL DISTRIBUTION WIDTH 20.6 % (11.5-14.5)
[2018-06-24] MEDS: EPOETIN 10000 UNITS/1 ML INJ (ESRD) SC (17:23)
[2018-06-25] MEDS: PANTOPRAZOLE (EC) 40 MG TAB PO ×2 (05:10→17:14)
[2018-06-25 06:56] LABS: ADD MAN DIFF? NO
[2018-06-25 06:58] LABS: ABNORMAL IP MESSAGE 1; BASOPHIL # 0.1 10^3/ul (0.0-0.1); BASOPHILS % 0.4 % (0.0-2.0); EOSINOPHILS # 0.1 10^3/ul (0.0-0.5); EOSINOPHILS % 0.9 % (0.0-7.0); HEMATOCRIT 23.9 % (42.0-52.0); HEMOGLOBIN 7.8 g/dl (14.0-18.0); LYMPHOCYTES # 0.9 10^3/ul (0.8-2.9); LYMPHOCYTES % 6.8 % (15.0-51.0); MEAN CORPUSCULAR HGB CONC 32.6 g/dl (32.0-37.0); MEAN CORPUSCULAR VOLUME 91.9 fl (82.0-101.0); MEAN PLATELET VOLUME 12.2 fl (7.4-10.4); MONOCYTE # 0.9 10^3/ul (0.3-0.9); MONOCYTES % 7.1 % (0.0-11.0); NEUTROPHIL # 10.8 10^3/ul (1.6-7.5); NEUTROPHILS % 84.3 % (39.0-77.0); PLATELET COUNT 89 10^3/UL (140-415); POSITIVE DIFF @See below; RED CELL DISTRIBUTION WIDTH 21.2 % (11.5-14.5)
[2018-06-25 06:58] LABS: WHITE BLOOD COUNT 12.8 10^3/ul (4.8-10.8)
[2018-06-25 07:19] LABS: PHOSPHORUS 4.9 mg/dl (2.5-4.9)
[2018-06-25 07:19] LABS: MAGNESIUM 1.7 mg/dl (1.7-2.5)
[2018-06-25 07:23] LABS: ALANINE AMINOTRANSFERASE 11 IU/L (13-69); ALBUMIN/GLOBULIN RATIO 0.95; ALKALINE PHOSPHATASE 71 IU/L (42-121); ANION GAP 10 (8-16); ASPARTATE AMINO TRANSFERASE 14 IU/L (15-46); BILIRUBIN,INDIRECT 0.2 mg/dl (0-1.1); BILIRUBIN,TOTAL 0.2 mg/dl (0.2-1.3); BLOOD UREA NITROGEN 62 mg/dl (7-20); CARBON DIOXIDE 23 mmol/L (21-31); CHLORIDE 110 mmol/L (97-110); GLUCOSE 95 mg/dl (70-220); POTASSIUM 4.4 mmol/L (3.5-5.1); SODIUM 139 mmol/L (135-144); TOTAL PROTEIN 4.1 g/dl (6.1-8.1)
[2018-06-25] MEDS: AMLODIPINE 10 MG TAB PO (08:59)
[2018-06-25] MEDS: HEPARIN 1000 UNITS/ML 10 ML INJ CATHETER (14:20)
[2018-06-25] MEDS: SUCRALFATE 1 GM TAB PO ×3 (14:30→20:30)
[2018-06-26] MEDS: PANTOPRAZOLE (EC) 40 MG TAB PO ×2 (05:28→17:03)
[2018-06-26 07:01] LABS: ADD MAN DIFF? NO
[2018-06-26 07:02] LABS: ABNORMAL IP MESSAGE 1; BASOPHIL # 0.1 10^3/ul (0.0-0.1); BASOPHILS % 0.6 % (0.0-2.0); EOSINOPHILS # 0.4 10^3/ul (0.0-0.5); EOSINOPHILS % 4.2 % (0.0-7.0); HEMATOCRIT 24.9 % (42.0-52.0); HEMOGLOBIN 7.9 g/dl (14.0-18.0); LYMPHOCYTES # 0.8 10^3/ul (0.8-2.9); LYMPHOCYTES % 9.3 % (15.0-51.0); MEAN CORPUSCULAR HEMOGLOBIN 29.4 pg (29.0-33.0); MEAN CORPUSCULAR HGB CONC 31.7 g/dl (32.0-37.0); MEAN CORPUSCULAR VOLUME 92.6 fl (82.0-101.0); MEAN PLATELET VOLUME 12.6 fl (7.4-10.4); MONOCYTE # 1.1 10^3/ul (0.3-0.9); MONOCYTES % 12.3 % (0.0-11.0); NEUTROPHIL # 6.6 10^3/ul (1.6-7.5); NEUTROPHILS % 72.8 % (39.0-77.0); POSITIVE DIFF @See below; RED BLOOD COUNT 2.69 10^6/ul (4.70-6.10); RED CELL DISTRIBUTION WIDTH 21.6 % (11.5-14.5)
[2018-06-26 07:09] LABS: PLATELET COUNT 84 10^3/UL (140-415)
[2018-06-26 07:23] LABS: ALANINE AMINOTRANSFERASE 24 IU/L (13-69); ALBUMIN 1.8 g/dl (3.3-4.9); ALBUMIN/GLOBULIN RATIO 0.78; ALKALINE PHOSPHATASE 92 IU/L (42-121); ANION GAP 9 (8-16); ASPARTATE AMINO TRANSFERASE 15 IU/L (15-46); BILIRUBIN,INDIRECT 0.1 mg/dl (0-1.1); BILIRUBIN,TOTAL 0.1 mg/dl (0.2-1.3); BLOOD UREA NITROGEN 35 mg/dl (7-20); CALCIUM 7.1 mg/dl (8.4-10.2); CARBON DIOXIDE 28 mmol/L (21-31); CHLORIDE 105 mmol/L (97-110); CREATININE 2.66 mg/dl (0.61-1.24); GLUCOSE 90 mg/dl (70-220); SODIUM 138 mmol/L (135-144); TOTAL PROTEIN 4.1 g/dl (6.1-8.1)
[2018-06-26] MEDS: SUCRALFATE 1 GM TAB PO ×4 (08:02→20:38)
[2018-06-26] MEDS: AMLODIPINE 10 MG TAB PO (08:02)
[2018-06-26] MEDS: POLYETHYLENE GLYCOL 17 GM PACKET PO (16:00)
[2018-06-26] MEDS: DOCUSATE SODIUM 100 MG CAP PO (20:38)
[2018-06-26] MEDS: SENNA TAB PO (20:38)
[2018-06-27] MEDS: PANTOPRAZOLE (EC) 40 MG TAB PO ×2 (05:24→17:56)
[2018-06-27 06:04] LABS: ADD MAN DIFF? NO
[2018-06-27 06:12] LABS: ABNORMAL IP MESSAGE 1; BASOPHIL # 0.1 10^3/ul (0.0-0.1); BASOPHILS % 0.4 % (0.0-2.0); EOSINOPHILS # 0.5 10^3/ul (0.0-0.5); EOSINOPHILS % 3.8 % (0.0-7.0); HEMATOCRIT 26.1 % (42.0-52.0); HEMOGLOBIN 8.4 g/dl (14.0-18.0); LYMPHOCYTES # 0.9 10^3/ul (0.8-2.9); LYMPHOCYTES % 7.1 % (15.0-51.0); MEAN CORPUSCULAR HEMOGLOBIN 30.3 pg (29.0-33.0); MEAN CORPUSCULAR HGB CONC 32.2 g/dl (32.0-37.0); MEAN CORPUSCULAR VOLUME 94.2 fl (82.0-101.0); MEAN PLATELET VOLUME 12.5 fl (7.4-10.4); MONOCYTE # 1.6 10^3/ul (0.3-0.9); MONOCYTES % 12.6 % (0.0-11.0); NEUTROPHIL # 9.2 10^3/ul (1.6-7.5); NEUTROPHILS % 75.3 % (39.0-77.0); PLATELET COUNT 96 10^3/UL (140-415); POSITIVE DIFF @See below; RED BLOOD COUNT 2.77 10^6/ul (4.70-6.10); RED CELL DISTRIBUTION WIDTH 21.2 % (11.5-14.5)
[2018-06-27 06:12] LABS: WHITE BLOOD COUNT 12.3 10^3/ul (4.8-10.8)
[2018-06-27 06:35] LABS: ALANINE AMINOTRANSFERASE 15 IU/L (13-69); ALBUMIN 2.1 g/dl (3.3-4.9); ALBUMIN/GLOBULIN RATIO 0.91; ALKALINE PHOSPHATASE 92 IU/L (42-121); ANION GAP 10 (8-16); ASPARTATE AMINO TRANSFERASE 15 IU/L (15-46); BLOOD UREA NITROGEN 51 mg/dl (7-20); CARBON DIOXIDE 24 mmol/L (21-31); CHLORIDE 109 mmol/L (97-110); CREATININE 3.45 mg/dl (0.61-1.24); GLUCOSE 90 mg/dl (70-220); POTASSIUM 4.6 mmol/L (3.5-5.1); SODIUM 138 mmol/L (135-144); TOTAL PROTEIN 4.4 g/dl (6.1-8.1)
[2018-06-27] MEDS: DOCUSATE SODIUM 100 MG CAP PO ×2 (08:43→20:27)
[2018-06-27] MEDS: POLYETHYLENE GLYCOL 17 GM PACKET PO (08:44)
[2018-06-27] MEDS: AMLODIPINE 10 MG TAB PO (08:44)
[2018-06-27] MEDS: SUCRALFATE 1 GM TAB PO ×4 (08:44→20:27)
[2018-06-27] MEDS: HEPARIN 1000 UNITS/ML 10 ML INJ CATHETER (13:06)
[2018-06-27] MEDS: EPOETIN 10000 UNITS/1 ML INJ (ESRD) SC (16:22)
[2018-06-28] MEDS: PANTOPRAZOLE (EC) 40 MG TAB PO ×2 (05:24→17:32)
[2018-06-28 06:41] LABS: ADD MAN DIFF? NO
[2018-06-28 06:44] LABS: WHITE BLOOD COUNT 10.2 10^3/ul (4.8-10.8)
[2018-06-28 06:44] LABS: BASOPHIL # 0.1 10^3/ul (0.0-0.1); BASOPHILS % 0.7 % (0.0-2.0); EOSINOPHILS # 0.4 10^3/ul (0.0-0.5); EOSINOPHILS % 4.2 % (0.0-7.0); HEMOGLOBIN 8.4 g/dl (14.0-18.0); LYMPHOCYTES % 9.4 % (15.0-51.0); MEAN CORPUSCULAR HEMOGLOBIN 30.5 pg (29.0-33.0); MEAN CORPUSCULAR HGB CONC 32.3 g/dl (32.0-37.0); MEAN CORPUSCULAR VOLUME 94.5 fl (82.0-101.0); MEAN PLATELET VOLUME 12.4 fl (7.4-10.4); MONOCYTE # 1.4 10^3/ul (0.3-0.9); NEUTROPHIL # 7.3 10^3/ul (1.6-7.5); PLATELET COUNT 110 10^3/UL (140-415); RED BLOOD COUNT 2.75 10^6/ul (4.70-6.10); RED CELL DISTRIBUTION WIDTH 21.5 % (11.5-14.5)
[2018-06-28 07:16] LABS: ALANINE AMINOTRANSFERASE 12 IU/L (13-69); ALBUMIN 2.1 g/dl (3.3-4.9); ALBUMIN/GLOBULIN RATIO 0.91; ALKALINE PHOSPHATASE 97 IU/L (42-121); ANION GAP 7 (8-16); ASPARTATE AMINO TRANSFERASE 14 IU/L (15-46); BLOOD UREA NITROGEN 37 mg/dl (7-20); CALCIUM 6.9 mg/dl (8.4-10.2); CARBON DIOXIDE 27 mmol/L (21-31); CHLORIDE 109 mmol/L (97-110); CREATININE 2.88 mg/dl (0.61-1.24); GLUCOSE 92 mg/dl (70-220); POTASSIUM 4.4 mmol/L (3.5-5.1); SODIUM 139 mmol/L (135-144); TOTAL PROTEIN 4.4 g/dl (6.1-8.1)
[2018-06-28] MEDS: POLYETHYLENE GLYCOL 17 GM PACKET PO (08:04)
[2018-06-28] MEDS: AMLODIPINE 10 MG TAB PO (08:04)
[2018-06-28] MEDS: DOCUSATE SODIUM 100 MG CAP PO (08:05)
[2018-06-28] MEDS: SUCRALFATE 1 GM TAB PO ×3 (08:05→17:33)
== END 2018-06-28 18:53 | DRG 377 ==
LOC: TEL 23:33 → E/R 19:35 → TEL 22:18
PROVIDERS: Family Medicine
PROC: 0W3P8ZZ Control Bleeding in Gastrointestinal Tract, Via Natural or Artificial Opening Endoscopic (ICD-10-PCS; principal; 2018-06-24 13:00)
PROC: 30253N1 (ICD-10-PCS; 2018-06-24 13:00)
DX: K31.811 Angiodysplasia of stomach and duodenum with bleeding (principal); N18.6 End stage renal disease; D62 Acute posthemorrhagic anemia; E44.0 Moderate protein-calorie malnutrition; Z68.1 Body mass index [BMI] 19.9 or less, adult; I12.0 Hypertensive chronic kidney disease with stage 5 chronic kidney disease or end stage renal disease; Z99.2 Dependence on renal dialysis; Z60.2 Problems related to living alone; F17.200 Nicotine dependence, unspecified, uncomplicated; E83.9 Disorder of mineral metabolism, unspecified; D69.6 Thrombocytopenia, unspecified
CPT/HCPCS: 36415; 36430; 80048; 80053; 82270; 83735; 84100; 85025; 85610; 85730; 86850; 86900; 86901; 86920; 90935; 96365; 97110; 97116; 97161; 99285-25